=== PATIENT | female | born 1970 | race African-American/Black ===

== ENCOUNTER 2017-06-30 22:38 | Emergency (ER) | payer OTHER ==
[~2017-06-30] VITALS: Ht 160 cm; Wt 83.9 kg
[2017-06-30] MEDS ORDERED: Morphine Sulfate 4mg/ml Inj IVP ONE (23:15)
[2017-06-30] MEDS ORDERED: Morphine Sulfate 4mg/ml Inj IM ONE (23:45)
[2017-07-01] LABS: BASOPHILS % (AUTO) 1.2 % (0.0-2.0); EOSINOPHILS % (AUTO) 1.5 % (0.0-3.0); MEAN CORPUSCULAR HEMOGLOBIN 32.8 PG (27.0-31.0); MEAN CORPUSCULAR HGB CONC 34.4 G/DL (32.0-36.0); MEAN CORPUSCULAR VOLUME 95 FL (80-99); MEAN PLATELET VOLUME 7.1 FL (6.5-10.1); MONOCYTES % (AUTO) 4.6 % (1.0-10.0); NEUTROPHILS % (AUTO) 52.7 % (45.0-75.0); PLATELET COUNT 237 K/UL (150-450); RED BLOOD COUNT 3.83 M/UL (4.20-5.40); RED CELL DISTRIBUTION WIDTH 11.8 % (11.6-14.8); WHITE BLOOD COUNT 7.9 K/UL (4.8-10.8)
[2017-07-01 00:06] LABS: APPEARANCE,URINE CLEAR; KETONES,URINE NEGATIVE (NEGATIVE); LEUKOCYTE ESTERASE ,URINE NEGATIVE (NEGATIVE); NITRITE,URINE NEGATIVE (NEGATIVE); PH,URINE 6.5 (4.5-8.0); PROTEIN,URINE NEGATIVE (NEGATIVE); UROBILINOGEN,URINE NORMAL MG/DL (0.0-1.0)
[2017-07-01 00:14] LABS: ALANINE AMINOTRANSFERASE 30 U/L (12-78); ANION GAP 10 mmol/L (5-15); ASPARTATE AMINO TRANSFERASE 26 U/L (15-37); CALCIUM 9.1 MG/DL (8.5-10.1); CARBON DIOXIDE 25 MMOL/L (21-32); CHLORIDE 105 MMOL/L (98-107); CREATININE 0.9 MG/DL (0.55-1.30); GLOMERULAR FILTRATION RATE > 60 mL/min (>60); LIPASE 126 U/L (73-393); POTASSIUM 3.8 MMOL/L (3.5-5.1); SODIUM 140 MMOL/L (136-145); TOTAL PROTEIN 7.3 G/DL (6.4-8.2)
[2017-07-01 01:13] VITALS: BP 132/73
--- NOTE | 2017-07-01 01:22 | Emergency Room Report ---
History of Present Illness General Chief Complaint: Abdominal Pain Source: Patient Present Illness HPI Is a 39-year-old female who said that she has Crohn disease. She's taking Asacol and prednisone. She presents with chief complaint of Crohn's exacerbation. Onset for last 2 days. Claimed that she has nausea vomiting and diarrhea. Diarrhea is bloody also. Also has pain of 10 out of 10. Similar symptoms in the past. She normally go to [facility]. She said that she is out of her pain medication for last 2 days. Denies any other complaint. Also said that she has been to the hospital/ER for 2 months. Allergies: Coded Allergies: KETOROLAC (Verified Allergy, Unknown, 06/30/17) Patient History Past Medical History: see triage record, old chart reviewed Pertinent Family History: none Social History: Denies: smoking Last Menstrual Period: None Now: No Immunizations: other Reviewed Nursing Documentation: PMH: Agreed, PSxH: Agreed Review of Systems Eye: Denies: eye pain, blurred vision ENT: Denies: ear pain, nose congestion, throat swelling Respiratory: Denies: cough, shortness of breath Cardiovascular: Denies: chest pain, palpitations Gastrointestinal: Reports: abdominal pain, diarrhea, nausea, vomiting Musculoskeletal: Denies: back pain, joint pain Skin: Denies: rash Neurological: Denies: headache, numbness Endocrine: Denies: increased thirst, increased urine Hematologic/Lymphatic: Denies: easy bruising All Other Systems: negative except mentioned in HPI Physical Exam Vital Signs Date Time Temp Pulse Resp B/P (MAP) Pulse Ox O2 Delivery O2 Flow Rate FiO2 06/30/17 22:53 98.1 99 18 144/90 98 Room Air vitals normal Sp02 EP Interpretation: reviewed, normal General Appearance: well appearing, no apparent distress, alert Head: normocephalic, atraumatic Eyes: bilateral eye PERRL, bilateral eye EOMI ENT: hearing grossly normal, normal pharynx Neck: full range of motion, supple, no meningismus Respiratory: chest non-tender, lungs clear, normal breath sounds Cardiovascular #1: regular rate, rhythm, no murmur Gastrointestinal: normal bowel sounds, no mass, no organomegaly, no bruit, non- distended, tenderness - diffuse Musculoskeletal: back normal, gait/station normal, normal range of motion Psychiatric: mood/affect normal Skin: warm/dry Medical Decision Making Diagnostic Impression: Primary Impression: Abdominal pain Qualified Codes: R10.84 - Generalized abdominal pain Additional Impression: Opiate dependence, continuous ER Course She complaining of Crohn's exacerbation abdominal pain. She says she's been to [facility] multiple times in the past. She said that she is out of her pain medication. Also said that she normally get her refill on the . When I point out that on the [facility] system she gets 120 tablets of [place] every month. She just had them filled on June 23. After this, she can get him. Said that she thought it was talking about her Crohn's medication. I was very clear about her [place] and pain medication. I suspect her high drug-seeking behavior on this patient. No evidence of acute abdomen. No evidence of obstruction. She looks very comfortable. No vomiting or diarrhea. Is unremarkable. We'll discharge home. Lab Results Impression labs normal CT/MRI/US Diagnostic Results CT/MRI/US Diagnostic Results : Imaging Test Ordered: CT abdomen and pelvis Impression Read by radiologist. Negative. Last Vital Signs Date Time Temp Pulse Resp B/P (MAP) Pulse Ox O2 Delivery O2 Flow Rate FiO2 07/01/17 00:15 98.0 06/30/17 22:53 99 18 144/90 98 Room Air Status: improved Disposition: HOME, SELF-CARE Condition: Stable Referrals: NON PHYSICIAN (PCP) Patient Instructions: Abdominal Pain, Adult Additional Instructions: Followup with your DrKathe in 2-3 days. Return if symptom worsen. JESSIKA CANO M.D. Jul 01, 2017 01:22
[2017-07-01 01:25] VITALS: BP 132/73
--- NOTE | 2017-07-01 15:08 | Diagnostic Imaging Report ---
Indication: Abdominal pain Technique: Spiral acquisitions obtained through the abdomen and pelvis. No oral contrast utilized, per emergency room physician request No IV contrast utilized, per referring physician request.. Multiplanar reconstructions were generated. Total dose length product 849 mGycm. CTDIvol(s) 17 mGy. Dose reduction achieved using automated exposure control Comparison: None Findings: . Questionable small area of slightly increased attenuation of the pelvic fat could represent mild epiploic appendicitis. There is diastasis of the rectus abdominis tendon and a small containing broad-based umbilical hernia. The appendix is not definitely demonstrated, but no findings to suggest acute appendicitis are evident. No evidence of diverticulosis or diverticulitis. There is equivocal mild diffuse distal colon wall thickening, although this is more likely artifact of distention. Proximal to mid small bowel loops are prominent, fluid-filled, but not frankly dilated. No free or loculated intraperitoneal air or fluid is demonstrated. Lack of IV contrast limits assessment of solid organs. Liver, gallbladder, bile ducts, pancreas, spleen, adrenals, kidneys are unremarkable. No mesenteric or retroperitoneal mass or adenopathy. No pelvic mass or adenopathy. The included lung bases are clear except for some medial right middle lobe atelectasis or scarring. The bones are unremarkable. Impression: Request old small area of increased attenuation of the pericolonic fat adjacent to the proximal sigmoid colon, could represent a small area of epiploic appendicitis. Correlate with clinical findings No acute process otherwise This agrees with the preliminary interpretation provided overnight by [facility] teleradiology service. The CT scanner at [facility] is accredited by the [employer] and the scans are performed using protocols designed to limit radiation exposure to as low as reasonably achievable to attain images of sufficient resolution adequate for diagnostic evaluation.
== END 2017-07-01 01:25 | disposition home or self-care (01) ==
LOC: EMR 23:08
DX: R10.84 Generalized abdominal pain (principal); K50.90 Crohn's disease, unspecified, without complications; R11.2 Nausea with vomiting, unspecified; R19.7 Diarrhea, unspecified; Z88.8 Allergy status to other drugs, medicaments and biological substances; F11.20 Opioid dependence, uncomplicated
CPT/HCPCS: 36415; 74176; 80053; 80306; 81003; 83690; 85025; 96361; 96372; 96374; 96375; 99284; J2270; J2405

== ENCOUNTER 2017-12-24 12:31 | Inpatient (IN) | payer OTHER ==
[~2017-12-24] VITALS: Ht 165.1 cm; Wt 83.9 kg
[2017-12-24 12:19] VITALS: BP 120/77
[2017-12-24] MEDS ORDERED: Nitroglycerin 2% oint pkt TOPIC ONE (12:45)
[2017-12-24 13:24] LABS: BASOPHILS % (AUTO) 0.7 % (0.0-2.0); EOSINOPHILS % (AUTO) 1.2 % (0.0-3.0); HEMOGLOBIN 12.9 G/DL (12.0-16.0); LYMPHOCYTES % (AUTO) 32.2 % (20.0-45.0); MEAN CORPUSCULAR VOLUME 96 FL (80-99); MONOCYTES % (AUTO) 6.3 % (1.0-10.0); NEUTROPHILS % (AUTO) 59.7 % (45.0-75.0); PLATELET COUNT 215 K/UL (150-450); RED BLOOD COUNT 3.96 M/UL (4.20-5.40); RED CELL DISTRIBUTION WIDTH 11.5 % (11.6-14.8); WHITE BLOOD COUNT 4.1 K/UL (4.8-10.8)
[2017-12-24 13:28] LABS: ANION GAP 12 mmol/L (5-15); BLOOD UREA NITROGEN 10 mg/dL (7-18); CALCIUM 8.8 MG/DL (8.5-10.1); CARBON DIOXIDE 26 MMOL/L (21-32); CHLORIDE 104 MMOL/L (98-107); CREATININE 0.8 MG/DL (0.55-1.30); POTASSIUM 3.4 MMOL/L (3.5-5.1); SODIUM 142 MMOL/L (136-145)
[2017-12-24 13:41] LABS: ALANINE AMINOTRANSFERASE 95 U/L (12-78); ALBUMIN 3.5 G/DL (3.4-5.0); ALKALINE PHOSPHATASE 93 U/L (46-116); ASPARTATE AMINO TRANSFERASE 53 U/L (15-37); BILIRUBIN,TOTAL 0.6 MG/DL (0.2-1.0); CKMB 0.9 NG/ML (0.0-3.6); CREATINE KINASE 154 U/L (26-308)
--- NOTE | 2017-12-24 14:09 | Diagnostic Imaging Report ---
Indication: Chest pain Technique: XRAY Chest 1v Comparison: None Findings: Heart size and mediastinal contours are within normal limits given technique. There is no focal consolidation, pneumothorax or pleural effusion. Osseous structures demonstrate no acute abnormality. Impression: No radiographic evidence of acute cardiopulmonary disease.
[2017-12-24 14:24] LABS: APPEARANCE,URINE CLEAR; BILIRUBIN, URINE NEGATIVE (NEGATIVE); COLOR,URINE PALE YELLOW; GLUCOSE, URINE (UA) NEGATIVE (NEGATIVE); KETONES,URINE NEGATIVE (NEGATIVE); LEUKOCYTE ESTERASE ,URINE NEGATIVE (NEGATIVE); NITRITE,URINE NEGATIVE (NEGATIVE); PH,URINE 6.5 (4.5-8.0); PROTEIN,URINE NEGATIVE (NEGATIVE); UROBILINOGEN,URINE NORMAL MG/DL (0.0-1.0)
--- NOTE | 2017-12-24 14:39 | Emergency Room Report ---
History of Present Illness General Chief Complaint: Chest Pain Source: Patient, EMS Present Illness HPI This patient states that she developed chest pain while she was taking a bath today. She states the pain is on her left chest and radiates to her shoulders. She states she also has been having abdominal pain. She states she is on prednisone chronically for Crohn's disease. She denies diarrhea. She denies cough or congestion. She denies fever or chills. She denies nausea or vomiting. She has no other complaints. Allergies: Coded Allergies: KETOROLAC (Verified Allergy, Unknown, 06/30/17) Patient History Past Medical History: see triage record, other - Chron[facility] D[facility] Social History: Denies: smoking, alcohol use, drug use Last Menstrual Period: NA Reviewed Nursing Documentation: PMH: Agreed; PSxH: Agreed Nursing Documentation-PMH Past Medical History: No History, Except For Hx Gastrointestinal Problems: Yes - Crohn's disease Review of Systems All Other Systems: negative except mentioned in HPI Physical Exam Vital Signs Date Time Temp Pulse Resp B/P (MAP) Pulse Ox O2 Delivery O2 Flow Rate FiO2 12/24/17 12:09 98.3 82 15 120/77 96 Room Air 98.2 Sp02 EP Interpretation: reviewed, normal General Appearance: no apparent distress, alert, GCS 15, non-toxic Head: normocephalic, atraumatic Eyes: bilateral eye normal inspection, bilateral eye PERRL ENT: hearing grossly normal, normal pharynx, no angioedema, normal voice Neck: full range of motion, supple/symm/no masses Respiratory: chest non-tender, lungs clear, normal breath sounds, speaking full sentences Cardiovascular #1: regular rate, rhythm, no edema Gastrointestinal: normal bowel sounds, soft, non-distended, no guarding, no rebound, tenderness - epigastrium and RUQ pain Rectal: deferred Musculoskeletal: back normal, gait/station normal, normal range of motion, non- tender Neurologic: alert, oriented x3, responsive, motor strength/tone normal, sensory intact, speech normal Psychiatric: judgement/insight normal, memory normal, mood/affect normal, no suicidal/homicidal ideation Skin: normal color, no rash, warm/dry, well hydrated Medical Decision Making Diagnostic Impression: Primary Impression: Chest pain ER Course Patient presents with chest pain. She presents very early in onset of her pain. Initial workup to include troponin is negative. However, this patient is high risk with a history of Crohn's disease and is chronically on prednisone. Also, the patient has abdominal pain and she is pending CT abdomen and pelvis at the time of this dictation. If there is any abnormality found on CT, an addendum will be added by Dr. Santiago. This patient is admitted for further evaluation and treatment. Laboratory Tests Test 12/24/17 12:37 12/24/17 14:08 White Blood Count 4.1 K/UL (4.8-10.8) L Red Blood Count 3.96 M/UL (4.20-5.40) L Hemoglobin 12.9 G/DL (12.0-16.0) Hematocrit 38.0 % (37.0-47.0) Mean Corpuscular Volume 96 FL (80-99) Mean Corpuscular Hemoglobin 32.7 PG (27.0-31.0) H Mean Corpuscular Hemoglobin Concent 34.0 G/DL (32.0-36.0) Red Cell Distribution Width 11.5 % (11.6-14.8) L Platelet Count 215 K/UL (150-450) Mean Platelet Volume 7.6 FL (6.5-10.1) Neutrophils (%) (Auto) 59.7 % (45.0-75.0) Lymphocytes (%) (Auto) 32.2 % (20.0-45.0) Monocytes (%) (Auto) 6.3 % (1.0-10.0) Eosinophils (%) (Auto) 1.2 % (0.0-3.0) Basophils (%) (Auto) 0.7 % (0.0-2.0) Prothrombin Time 10.0 SEC (9.30-11.50) Prothrombin Time INR 1.0 (0.9-1.1) PTT 26 SEC (23-33) Sodium Level 142 MMOL/L (136-145) Potassium Level 3.4 MMOL/L (3.5-5.1) L Chloride Level 104 MMOL/L (98-107) Carbon Dioxide Level 26 MMOL/L (21-32) Anion Gap 12 mmol/L (5-15) Blood Urea Nitrogen 10 mg/dL (7-18) Creatinine 0.8 MG/DL (0.55-1.30) Estimate Glomerular Filtration Rate > 60 mL/min (>60) Glucose Level 133 MG/DL (74-106) H Calcium Level 8.8 MG/DL (8.5-10.1) Total Bilirubin 0.6 MG/DL (0.2-1.0) Aspartate Amino Transferase (AST) 53 U/L (15-37) H Alanine Aminotransferase (ALT) 95 U/L (12-78) H Alkaline Phosphatase 93 U/L (46-116) Total Creatine Kinase 154 U/L (26-308) Creatine Kinase MB 0.9 NG/ML (0.0-3.6) Creatine Kinase MB Relative Index 0.5 Troponin I 0.000 ng/mL (0.000-0.056) Total Protein 7.1 G/DL (6.4-8.2) Albumin 3.5 G/DL (3.4-5.0) Globulin 3.6 g/dL Albumin/Globulin Ratio 1.0 (1.0-2.7) Urine Color Pale yellow Urine Appearance Clear Urine pH 6.5 (4.5-8.0) Urine Specific [place] 1.015 (1.005-1.035) Urine Protein Negative (NEGATIVE) Urine Glucose (UA) Negative (NEGATIVE) Urine Ketones Negative (NEGATIVE) Urine Occult Blood Negative (NEGATIVE) Urine Nitrite Negative (NEGATIVE) Urine Bilirubin Negative (NEGATIVE) Urine Urobilinogen Normal MG/DL (0.0-1.0) Urine Leukocyte Esterase Negative (NEGATIVE) Urine HCG, Qualitative Negative (NEGATIVE) Urine Opiates Screen Pending Urine Barbiturates Screen Pending Phencyclidine (PCP) Screen Pending Urine Amphetamines Screen Pending Urine Benzodiazepines Screen Pending Urine Cocaine Screen Pending Urine Marijuana (THC) Screen Pending EKG Diagnostic Results Rate: normal Rhythm: NSR ST Segments: no acute changes Rhythm Strip Diag. Results EP Interpretation: yes Rate: 90's Rhythm: NSR, no PVC's, no ectopy Chest X-Ray Diagnostic Results Chest X-Ray Diagnostic Results : Chest X-Ray Ordered: Yes # of Views/Limited/Complete: 1 View Indication: Chest Pain EP Interpretation: No Interpretation: no consolidation, no effusion, no pneumothorax, no acute cardiopulmonary disease Impression: No acute disease Electronically Signed by: Alberto CT/MRI/US Diagnostic Results CT/MRI/US Diagnostic Results : Imaging Test Ordered: CT abd/pelvis Impression Pending at the time of this dictation. See official report. Last Vital Signs Date Time Temp Pulse Resp B/P (MAP) Pulse Ox O2 Delivery O2 Flow Rate FiO2 12/24/17 12:52 105/74 12/24/17 12:21 82 15 Room Air 12/24/17 12:19 98.2 96 98.2 Disposition: ADMITTED INPATIENT Condition: Stable [facility] NAVNEET BAUER D.O. Dec 24, 2017 14:39
[2017-12-24] MEDS ORDERED: HYDROcodone/Acetamin 10/325 tab ORAL ONE (16:30)
[2017-12-24 16:52] VITALS: BP 123/86
[2017-12-24] MEDS ORDERED: PREDNISONE20 MG ORAL (17:37)
[2017-12-24] MEDS ORDERED: CYCLOBENZAPRINE10 MG ORAL (17:37)
[2017-12-24] MEDS ORDERED: NORCO 10-325 T1 EACH ORAL (17:37)
[2017-12-24] MEDS ORDERED: ASACOL HD800 MG ORAL (17:37)
--- NOTE | 2017-12-24 18:23 | Consultation ---
History of Present Illness General Date patient seen: Dec 24, 2017 Chief Complaint: Chest Pain Reason for Consultation: abdominal pain Present Illness HPI 47 year old female with history of Crohn's disease on prednisone presented to ED with complaints of abdominal pain/chest pain, nausea, and emesis beginning this afternoon. States that she was doing well until she took a bath a few hours ago when she noted some generalized abdominal cramping which was 7/10 in severity. no radiation. +n/v. came to ED for evaluation. since generalized pain has somewhat improved and chest pain has resolved. states that she only has epigastric and RUQ discomfort now. because of her Crohn's she has chronic history of intermittent abdominal pain and takes norco 10mg occasionally. no NSAID use. has had similar episodes prior. was at [facility] 2 months ago where she was found to have an infection and was on IV Abx for some time. cannot recall details. 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 prior surgical history includes open appendectomy in and 4 prior c-sections. chronic constipation. Allergies: Coded Allergies: KETOROLAC (Verified Allergy, Unknown, 06/30/17) Medication History Scheduled Cyclobenzaprine Hcl* (Flexeril*), 40 MG ORAL TWICE A DAY, (Reported) Mesalamine (Asacol Hd), 800 MG ORAL TWICE A DAY, (Reported) Prednisone* (Prednisone*), 40 MG ORAL TWICE A DAY, (Reported) Scheduled PRN Hydrocodone Bit/Acetaminophen 10-325* ([place] 10-325*), 1 TAB ORAL Q6H PRN for For Pain, (Reported) Patient History History Provided By: Patient, Medical Record, PMD Healthcare decision maker Resuscitation status Advanced Directive on File Past Medical/Surgical History Past Medical/Surgical History: (1) Abdominal pain (2) Crohn disease (3) History of appendectomy (4) History of (5) Pneumoperitoneum of unknown etiology Review of Systems All Other Systems: negative except mentioned in HPI Physical Exam General Appearance: no apparent distress Lines, tubes and drains: peripheral HEENT: normocephalic, mucous membranes moist, PERRL Neck: normal alignment, supple, normal inspection Respiratory/Chest: chest wall non-tender, lungs clear, normal breath sounds, no respiratory distress, no accessory muscle use Cardiovascular/Chest: normal peripheral pulses, normal rate, regular rhythm Abdomen: soft, no organomegaly, no mass, tender, other - soft, no rebound, no guarding, tender in RUQ and epigastric region. no acute abdomen, no periotnitis Extremities: normal range of motion, non-tender Skin Exam: normal pigmentation Neurologic: alert, oriented x 3 Last 24 Hour Vital Signs Date Time Temp Pulse Resp B/P (MAP) Pulse Ox O2 Delivery O2 Flow Rate FiO2 12/24/17 17:37 98.2 12/24/17 16:52 82 14 123/86 99 Room Air 12/24/17 16:27 98.2 12/24/17 12:52 105/74 12/24/17 12:21 82 15 Room Air 12/24/17 12:19 98.2 82 15 120/77 96 Room Air 98.2 12/24/17 12:09 98.3 82 15 120/77 96 Room Air 98.2 Laboratory Tests Test 12/24/17 12:37 12/24/17 14:08 White Blood Count 4.1 K/UL (4.8-10.8) L Red Blood Count 3.96 M/UL (4.20-5.40) L Hemoglobin 12.9 G/DL (12.0-16.0) Hematocrit 38.0 % (37.0-47.0) Mean Corpuscular Volume 96 FL (80-99) Mean Corpuscular Hemoglobin 32.7 PG (27.0-31.0) H Mean Corpuscular Hemoglobin Concent 34.0 G/DL (32.0-36.0) Red Cell Distribution Width 11.5 % (11.6-14.8) L Platelet Count 215 K/UL (150-450) Mean Platelet Volume 7.6 FL (6.5-10.1) Neutrophils (%) (Auto) 59.7 % (45.0-75.0) Lymphocytes (%) (Auto) 32.2 % (20.0-45.0) Monocytes (%) (Auto) 6.3 % (1.0-10.0) Eosinophils (%) (Auto) 1.2 % (0.0-3.0) Basophils (%) (Auto) 0.7 % (0.0-2.0) Prothrombin Time 10.0 SEC (9.30-11.50) Prothromb Time International Ratio 1.0 (0.9-1.1) Activated Partial Thromboplast Time 26 SEC (23-33) Sodium Level 142 MMOL/L (136-145) Potassium Level 3.4 MMOL/L (3.5-5.1) L Chloride Level 104 MMOL/L (98-107) Carbon Dioxide Level 26 MMOL/L (21-32) Anion Gap 12 mmol/L (5-15) Blood Urea Nitrogen 10 mg/dL (7-18) Creatinine 0.8 MG/DL (0.55-1.30) Estimat Glomerular Filtration Rate > 60 mL/min (>60) Glucose Level 133 MG/DL (74-106) H Calcium Level 8.8 MG/DL (8.5-10.1) Total Bilirubin 0.6 MG/DL (0.2-1.0) Aspartate Amino Transf (AST/SGOT) 53 U/L (15-37) H Alanine Aminotransferase (ALT/SGPT) 95 U/L (12-78) H Alkaline Phosphatase 93 U/L (46-116) Total Creatine Kinase 154 U/L (26-308) Creatine Kinase MB 0.9 NG/ML (0.0-3.6) Creatine Kinase MB Relative Index 0.5 Troponin I 0.000 ng/mL (0.000-0.056) Total Protein 7.1 G/DL (6.4-8.2) Albumin 3.5 G/DL (3.4-5.0) Globulin 3.6 g/dL Albumin/Globulin Ratio 1.0 (1.0-2.7) Lipase 142 U/L (73-393) Urine Color Pale yellow Urine Appearance Clear Urine pH 6.5 (4.5-8.0) Urine Specific [place] 1.015 (1.005-1.035) Urine Protein Negative (NEGATIVE) Urine Glucose (UA) Negative (NEGATIVE) Urine Ketones Negative (NEGATIVE) Urine Occult Blood Negative (NEGATIVE) Urine Nitrite Negative (NEGATIVE) Urine Bilirubin Negative (NEGATIVE) Urine Urobilinogen Normal MG/DL (0.0-1.0) Urine Leukocyte Esterase Negative (NEGATIVE) Urine HCG, Qualitative Negative (NEGATIVE) Urine Opiates Screen Negative (NEGATIVE) Urine Barbiturates Screen Negative (NEGATIVE) Phencyclidine (PCP) Screen Negative (NEGATIVE) Urine Amphetamines Screen Negative (NEGATIVE) Urine Benzodiazepines Screen Negative (NEGATIVE) Urine Cocaine Screen Negative (NEGATIVE) Urine Marijuana (THC) Screen Negative (NEGATIVE) Height (Feet): 5 Height (Inches): 5.00 Weight (Pounds): 180 Assessment/Plan Status: stable Assessment/Plan 47F hx Crohn's on chronic steroids presented with acute abdominal and chest pain since earlier today. Afebrile, HD stable, labs okay CT scan with scattered small pockets of pneumoperitoneum of unknown etiology, endometrial air, no free fluid, no inflammatory process, no identifiable source. exam with epigastric/ruq tenderness but no rebound/guarding/peritonitis. complicated case given history. steroids complicate exam, labs and vitals as she may not mount of fever, white count, or significant inflammatory process. recent admission to outside facility with Abx course for unknown infection. given above I discussed case and care with patient. pneumoperitoneum and pain are very concerning. lack of identifiable etiology makes diagnosis complex. history of active chronic crohn's makes her high risk for surgical complications. I offered her both surgical options and alternatives. after we discussed surgery and alternatives, we came to conclusion to treat conservatively and continue with work up given she is stable. I need to obtain records from outside facility admission to determine what infection she had, what procedures she had done, and what imaging is available for comparison. would also prefer to get CT scan or upper GI with contrast to see if perforation and where. 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 possible perforated gastric or duodenal ulcer as well? also has history of chronic constipation so could be perforated tic as well that does not have significant inflammation given steroid use. will monitor clinically for now. patient aware that if exam, condition/vitals/ labs worsen may need to proceed to surgery urgently and condition may deteriorate if we wait. patient expressed understanding and preference to monitor for now and if worsens then consider surgery. NPO IV fluids IV Abx serial exams obtain prior records Mathew Perez Dec 24, 2017 18:23
[2017-12-24] MEDS ORDERED: Ketorolac 30mg Inj IV PRN (18:30)
[2017-12-24] MEDS ORDERED: Hydromorphone 0.5mg/0.5ml inj IVP PRN ×2 (18:30)
[2017-12-24] MEDS ORDERED: D5 1/2NS w/KCl 20mEq 1,000 ML IV SCH (19:00)
[2017-12-24] MEDS: Pantoprazole Inj IVP SCH (20:51)
[2017-12-24] MEDS: Piperacillin/Tazobactam 3.375 GM in NS 110 ML IVPB SCH (20:51)
[2017-12-24] MEDS: Heparin 5000 units/ml inj SUBQ SCH (20:53)
[2017-12-24] MEDS ORDERED: Morphine Sulfate 2mg/ml Inj IVP PRN (21:00)
[2017-12-24] MEDS ORDERED: Pantoprazole Inj IV SCH (21:30)
[2017-12-24] MEDS: D5 1/2NS 1,000 ML IV SCH (21:39)
[2017-12-24] MEDS: Cyclobenzaprine 10mg Tab ORAL SCH (21:40)
[2017-12-24] MEDS: Morphine Sulfate 4mg/ml Inj IVP PRN (22:39)
[2017-12-25] VITALS: BP 125/82
[2017-12-25] MEDS: Morphine Sulfate 4mg/ml Inj IVP PRN ×5 (01:49→19:34)
[2017-12-25 04:00] VITALS: BP 110/78
[2017-12-25] MEDS: D5 1/2NS 1,000 ML IV SCH ×3 (04:10→18:27)
[2017-12-25] MEDS: Piperacillin/Tazobactam 3.375 GM in NS 110 ML IVPB SCH ×3 (04:10→20:07)
[2017-12-25] MEDS: DiphenhydrAMINE 50mg/ml Inj IVP PRN ×2 (04:26→11:24)
[2017-12-25 04:43] LABS: BASOPHILS % (AUTO) 1.3 % (0.0-2.0); EOSINOPHILS % (AUTO) 2.4 % (0.0-3.0); HEMOGLOBIN 12.7 G/DL (12.0-16.0); MEAN CORPUSCULAR VOLUME 95 FL (80-99); MONOCYTES % (AUTO) 4.7 % (1.0-10.0); NEUTROPHILS % (AUTO) 49.6 % (45.0-75.0); PLATELET COUNT 218 K/UL (150-450); RED BLOOD COUNT 3.98 M/UL (4.20-5.40); RED CELL DISTRIBUTION WIDTH 11.6 % (11.6-14.8); WHITE BLOOD COUNT 4.3 K/UL (4.8-10.8)
[2017-12-25 05:23] LABS: ALANINE AMINOTRANSFERASE 80 U/L (12-78); ALBUMIN 3.3 G/DL (3.4-5.0); ALBUMIN/GLOBULIN RATIO 0.9 (1.0-2.7); ALKALINE PHOSPHATASE 86 U/L (46-116); ANION GAP 9 mmol/L (5-15); ASPARTATE AMINO TRANSFERASE 36 U/L (15-37); BLOOD UREA NITROGEN 8 mg/dL (7-18); CALCIUM 8.6 MG/DL (8.5-10.1); CARBON DIOXIDE 26 MMOL/L (21-32); CHLORIDE 106 MMOL/L (98-107); CHOLESTEROL 137 MG/DL (< 200); CREATININE 0.7 MG/DL (0.55-1.30); HDL CHOLESTEROL 71 MG/DL (40-60); POTASSIUM 3.6 MMOL/L (3.5-5.1); SODIUM 141 MMOL/L (136-145); TRIGLYCERIDES 100 MG/DL (30-150)
[2017-12-25 05:25] LABS: ANION GAP 11 mmol/L (5-15); BLOOD UREA NITROGEN 9 mg/dL (7-18); CALCIUM 8.6 MG/DL (8.5-10.1); CARBON DIOXIDE 25 MMOL/L (21-32); CHLORIDE 106 MMOL/L (98-107); CREATININE 0.7 MG/DL (0.55-1.30); POTASSIUM 3.9 MMOL/L (3.5-5.1); SODIUM 142 MMOL/L (136-145)
[2017-12-25 08:00] VITALS: BP 105/75
[2017-12-25] MEDS: Pantoprazole Inj IVP SCH ×2 (09:25→21:41)
[2017-12-25] MEDS: Cyclobenzaprine 10mg Tab ORAL SCH ×2 (09:25→17:34)
[2017-12-25] MEDS: Heparin 5000 units/ml inj SUBQ SCH ×2 (09:26→21:42)
--- NOTE | 2017-12-25 09:45 | Diagnostic Imaging Report ---
Clinical Indication: Abdominal pain Technique: No oral contrast utilized, per emergency room physician request IV administration nonionic contrast. Venous phase spiral acquisition obtained through the abdomen and pelvis. Multiplanar reconstructions were generated. Total dose length product 745.58 mGycm. CTDIvol(s) 14.56 mGy. Dose reduction achieved using automated exposure control Comparison: 06/30/2017 Findings: The appendix is not definitely visualized but no evidence of appendicitis. There are scattered colonic diverticula. No evidence of diverticulitis. Bubbles of extraluminal gas are seen in the anterior peritoneal space. Bubbles of gas are also seen over the dome of the liver, the dominant appendix, in Morison's pouch, and in the adarsh hepatis. No gastric wall thickening. No small bowel distention. The liver, gallbladder, bile ducts, pancreas, spleen, adrenals, kidneys are all unremarkable. No retroperitoneal or mesenteric mass or adenopathy. No pelvic mass or adenopathy. A few small gas bubbles are seen within the endometrial cavity. Endometrium is otherwise not thickened. No pelvic mass or adenopathy. The included lung bases demonstrate posterior dependent atelectatic changes. The included lung bases are clear. The bones demonstrate degenerative spondylosis changes. Impression: Free intraperitoneal air. This is suspicious for perforated hollow viscus however, no findings to suggest the etiology of this are demonstrated Gas bubbles in the endometrium. This raises concern for endometritis, although there is no endometrial thickening or fluid. It is also conceivable although unlikely that this could be the source of the pneumoperitoneum Degenerative spondylosis This agrees with the preliminary interpretation provided overnight by [facility]erad[facility] service. Findings also discussed by phone with Dr. Perez at the time of interpretation The CT scanner at [facility] is accredited by the [employer] and the scans are performed using protocols designed to limit radiation exposure to as low as reasonably achievable to attain images of sufficient resolution adequate for diagnostic evaluation.
--- NOTE | 2017-12-25 10:37 | History & Physical ---
History and Physical History & Physicial Hp dictated # [id number] DAVID IVEY Dec 25, 2017 10:37
--- NOTE | 2017-12-25 10:45 | Consultation ---
DATE OF CONSULTATION: 12/25/2017 GASTROENTEROLOGY CONSULTATION CONSULTING PHYSICIAN: Bhupendra Kerns M.D. CHIEF COMPLAINT: Crohn disease, perforated viscus. HISTORY OF PRESENT ILLNESS: This is a very pleasant 47-year-old female with past medical history of Crohn disease diagnosed about 5 years ago according to her, currently on prednisone taper to 20 mg a day and also Asacol. The patient is a patient of Dr. Fontaine in [facility]. She was admitted to the hospital complaining of right-sided upper quadrant abdominal pain. Imaging studies showed evidence of air in the abdomen, possible perforated viscus. The patient was admitted since then. PAST MEDICAL HISTORY: History of Crohn disease. ALLERGIES: To ketorolac. MEDICATIONS: Please see medication reconciliation list. SOCIAL HISTORY: The patient denies any recent tobacco, alcohol, or drug abuse. FAMILY HISTORY: Noncontributory. PAST SURGICAL HISTORY: 1. History of appendectomy. 2. . REVIEW OF SYSTEMS: A 10-point review of systems was performed and pertinent positives are in HPI. PHYSICAL EXAMINATION: VITAL SIGNS: Temperature 97.6, pulse 64, respirations 20, and blood pressure /78. HEENT: Normocephalic and atraumatic. Sclerae anicteric. NECK: Supple. No evidence of lymphadenopathy. CARDIOVASCULAR: Regular rhythm. Plus S1 and S2. No obvious murmur. LUNGS: Decreased breath sounds bilaterally based on the supine exam. ABDOMEN: Soft. Bowel sounds are hypoactive. There is tenderness to palpation in the right upper quadrant. No rebound. No guarding. No peritoneal sign. EXTREMITIES: No cyanosis. No clubbing. No edema. LABORATORY DATA: White count 4.3, hemoglobin 12, hematocrit 38, platelet of 218,000. ASSESSMENT: This is a 47-year-old female with history of Crohn disease, who presented to the hospital with possible perforated viscus. According to the patient, she had a BM today which was watery and nonbloody. PLAN: The patient has been already seen by the surgeon, Dr. Perez. The patient is n.p.o., on IV fluids. We will change the prednisone from p.o. to IV given the patient is planned to be n.p.o. except for medications. We will start the patient on Solu-Medrol 20 mg IV q.8 h. We will send the stool for C. difficile. Follow labs. Follow surgical recommendations. Bhupendra Kerns M.D. DR: Darrian JOB#: [id number] CC:
[2017-12-25 12:00] VITALS: BP 123/84
--- NOTE | 2017-12-25 12:50 | General Surgery Progress Note ---
General Surgery-Progress Note Subjective Symptoms: improved Additional Comments doing well. pain improved. no n/v/f/c. passing flatus. had 2x BM. states she feels better. Objective Last 24 Hour Vital Signs Date Time Temp Pulse Resp B/P (MAP) Pulse Ox O2 Delivery O2 Flow Rate FiO2 12/25/17 12:00 77 12/25/17 08:00 97.3 73 21 105/75 99 Room Air 97.3 73 12/25/17 08:00 68 12/25/17 04:00 97.6 64 20 110/78 100 Room Air 97.6 64 12/25/17 03:35 61 12/25/17 00:00 97.7 66 20 125/82 97 Room Air 97.7 66 12/25/17 00:00 97.7 66 20 125/82 97 Room Air 97.7 66 12/24/17 23:33 78 12/24/17 21:40 98.2 12/24/17 20:53 70 12/24/17 19:15 98.2 82 14 123/86 99 Room Air 208.8 12/24/17 19:00 98.2 12/24/17 17:37 98.2 12/24/17 16:52 82 14 123/86 99 Room Air 12/24/17 16:27 98.2 12/24/17 12:52 105/74 I&O Intake and Output 12/24/17 12/25/17 19:00 07:00 Intake Total 1000 ml 2107.5 ml Output Total 550 ml Balance 1000 ml 1557.5 ml Intake IV Total 1000 ml 1507.5 ml Other 600 ml Output Urine Total 550 ml # Voids 1 2 # Bowel Movements 2 Cardiovascular: RSR Respiratory: clear Abdomen: soft, flat, non-tender, present bowel sounds Extremities: no edema, no tenderness, no cyanosis Laboratory Tests Test 12/24/17 14:08 12/25/17 03:30 Urine Color Pale yellow Urine Appearance Clear Urine pH 6.5 (4.5-8.0) Urine Specific [place] 1.015 (1.005-1.035) Urine Protein Negative (NEGATIVE) Urine Glucose (UA) Negative (NEGATIVE) Urine Ketones Negative (NEGATIVE) Urine Occult Blood Negative (NEGATIVE) Urine Nitrite Negative (NEGATIVE) Urine Bilirubin Negative (NEGATIVE) Urine Urobilinogen Normal MG/DL (0.0-1.0) Urine Leukocyte Esterase Negative (NEGATIVE) Urine HCG, Qualitative Negative (NEGATIVE) Urine Opiates Screen Negative (NEGATIVE) Urine Barbiturates Screen Negative (NEGATIVE) Phencyclidine (PCP) Screen Negative (NEGATIVE) Urine Amphetamines Screen Negative (NEGATIVE) Urine Benzodiazepines Screen Negative (NEGATIVE) Urine Cocaine Screen Negative (NEGATIVE) Urine Marijuana (THC) Screen Negative (NEGATIVE) White Blood Count 4.3 K/UL (4.8-10.8) L Red Blood Count 3.98 M/UL (4.20-5.40) L Hemoglobin 12.7 G/DL (12.0-16.0) Hematocrit 38.0 % (37.0-47.0) Mean Corpuscular Volume 95 FL (80-99) Mean Corpuscular Hemoglobin 31.8 PG (27.0-31.0) H Mean Corpuscular Hemoglobin Concent 33.3 G/DL (32.0-36.0) Red Cell Distribution Width 11.6 % (11.6-14.8) Platelet Count 218 K/UL (150-450) Mean Platelet Volume 7.6 FL (6.5-10.1) Neutrophils (%) (Auto) 49.6 % (45.0-75.0) Lymphocytes (%) (Auto) 42.0 % (20.0-45.0) Monocytes (%) (Auto) 4.7 % (1.0-10.0) Eosinophils (%) (Auto) 2.4 % (0.0-3.0) Basophils (%) (Auto) 1.3 % (0.0-2.0) Erythrocyte Sedimentation Rate 4 MM/HR (0-20) Sodium Level 142 MMOL/L (136-145) Potassium Level 3.9 MMOL/L (3.5-5.1) Chloride Level 106 MMOL/L (98-107) Carbon Dioxide Level 25 MMOL/L (21-32) Anion Gap 11 mmol/L (5-15) Blood Urea Nitrogen 9 mg/dL (7-18) Creatinine 0.7 MG/DL (0.55-1.30) Estimat Glomerular Filtration Rate > 60 mL/min (>60) Glucose Level 129 MG/DL (74-106) H Lactic Acid Level 1.60 mmol/L (0.66-2.22) Calcium Level 8.6 MG/DL (8.5-10.1) Magnesium Level 2.2 MG/DL (1.8-2.4) Total Bilirubin 1.0 MG/DL (0.2-1.0) Aspartate Amino Transf (AST/SGOT) 36 U/L (15-37) Alanine Aminotransferase (ALT/SGPT) 80 U/L (12-78) H Alkaline Phosphatase 86 U/L (46-116) C-Reactive Protein, Quantitative 1.0 mg/dL (0.00-0.90) H Total Protein 6.8 G/DL (6.4-8.2) Albumin 3.3 G/DL (3.4-5.0) L Globulin 3.5 g/dL Albumin/Globulin Ratio 0.9 (1.0-2.7) L Triglycerides Level 100 MG/DL (30-150) Cholesterol Level 137 MG/DL (< 200) LDL Cholesterol 61 mg/dL (<100) HDL Cholesterol 71 MG/DL (40-60) H Cholesterol/HDL Ratio 1.9 (3.3-4.4) L Plan Problems: (1) Pneumoperitoneum of unknown etiology Assessment & Plan: 47F hx Crohn's on chronic steroids presented with acute abdominal and chest pain since earlier today. Afebrile, HD stable, labs okay CT scan with scattered small pockets of pneumoperitoneum of unknown etiology, endometrial air, no free fluid, no inflammatory process, no identifiable source. exam with epigastric/ruq tenderness but no rebound/guarding/peritonitis. complicated case given history. steroids complicate exam, labs and vitals as she may not mount of fever, white count, or significant inflammatory process. recent admission to outside facility with Abx course for unknown infection. given above I discussed case and care with patient. pneumoperitoneum and pain are very concerning. lack of identifiable etiology makes diagnosis complex. history of active chronic crohn's makes her high risk for surgical complications. I offered her both surgical options and alternatives. after we discussed surgery and alternatives, we came to conclusion to treat conservatively and continue with work up given she is stable. I need to obtain records from outside facility admission to determine what infection she had, what procedures she had done, and what imaging is available for comparison. would also prefer to get CT scan or upper GI with contrast to see if perforation and where. 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 possible perforated gastric or duodenal ulcer as well? also has history of chronic constipation so could be perforated tic as well that does not have significant inflammation given steroid use. will monitor clinically for now. patient aware that if exam, condition/vitals/ labs worsen may need to proceed to surgery urgently and condition may deteriorate if we wait. patient expressed understanding and preference to monitor for now and if worsens then consider surgery. Doing better today. pain improving. exam improved. labs okay. reviewed CT with radiologist. will continue with current care plan for now as she is improving. NPO IV fluids IV Abx serial exams obtain prior records Mathew Perez Dec 25, 2017 12:50
[2017-12-25] MEDS: Solu-MEDROL 40mg Inj IVP SCH ×2 (13:44→21:41)
[2017-12-25 16:00] VITALS: BP 112/65
--- NOTE | 2017-12-25 16:30 | History and Physical Report ---
DATE OF ADMISSION: 12/24/2017 CHIEF COMPLAINT: Abdominal pain. HISTORY OF PRESENT ILLNESS: The patient is a 47-year-old female with history of Crohn's disease, apparently this was diagnosed about 5 to 6 years ago. The patient comes in with severe upper abdominal pain which started yesterday, it was 10/10. Also she had some chest pain. She called paramedics, was brought into the hospital. In the emergency room, she had a CT scan of the abdomen which showed some pneumoperitoneum and there was a concern that the patient had bowel perforation so she was admitted to the [facility]. She states that she does not have chronic pains, the last time she had severe pain was in October. Also few months ago she was in the [facility] for Crohn's related symptoms and she was on antibiotics for infection. The patient has had also some diarrhea at that time and again at this time. She has not had any surgery related to Crohn's but she has had an appendectomy and four C-sections. ALLERGIES: Ketorolac causing swelling of her throat. MEDICATIONS: Reviewed in the EMR. SOCIAL HISTORY: No history of smoking or alcohol abuse. The patient lives at home. 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 She has applied for disability less than a year ago. No history of smoking or alcohol abuse. She lives alone. REVIEW OF SYSTEMS: CARDIOVASCULAR: No history of heart disease. She had chest pain just yesterday. PULMONARY: No complaints. GASTROINTESTINAL: As above. Note that the patient had also some stomach upset before. GENITOURINARY: No complaints. PHYSICAL EXAMINATION: GENERAL: The patient is a 47-year-old female, in no acute distress. VITAL SIGNS: Blood pressure 105/75, pulse 68, temperature 97.3, respiratory rate is 21. HEENT: [place] conjunctivae. Anicteric sclerae. NECK: Supple. LUNGS: Clear to auscultation. HEART: S1 and S2 without murmurs or rubs. ABDOMEN: The patient has some tenderness in epigastric area as well as right upper quadrant. slightly extended EXTREMITIES: Bilateral pedal edema. LABORATORY FINDINGS: CBC as of admission shows WBC of 4.1, hematocrit 38, hemoglobin 12.9, and platelets 215,000. The chemistry panel shows a serum sodium 141, potassium 3.6, chloride 106, CO2 29, BUN 8, creatinine 0.7, blood sugar is 132, calcium is 8.6. AST , ALT is 80. Albumin is 3.3. Lipase 142. UA is benign. The patient had a toxicology screen in the emergency room which was also negative and also negative for opiates. ASSESSMENT: This is a 47-year-old female who has Crohn's disease who presents now with severe abdominal pain. She has some diarrhea. Symptoms could be exacerbation of Crohn's disease. She did have a pneumoperitoneum so the possibility of small perforation exists. PLAN: The patient was seen by Dr. Perez in surgical consultation, needs opinion. There is no urgent need for surgery and the patient can be observed conservatively at this time. The patient was also seen by Dr. Kerns for GI. Plan is currently, the patient will be on IV fluids, NPO, IV antibiotics, pain medications. We will follow clinically and make further changes in the patient's regimen. Matthew Mas M.D. DR: Dusty JOB#: [id number] CC:
[2017-12-25 20:00] VITALS: BP 138/81
[2017-12-25] MEDS ORDERED: Tubing IV Secondary IV ONE (22:40)
[2017-12-25] MEDS ORDERED: D5 1/2NS 1000ml IV ONE (22:40)
[2017-12-25] MEDS ORDERED: Sterile Water Irrig 1000ml IRRIG ONE (22:40)
[2017-12-26] VITALS (13 sets, daily range): BP systolic 99–143; BP diastolic 48–97
[2017-12-26] MEDS: D5 1/2NS 1,000 ML IV SCH ×4 (01:17→20:18)
[2017-12-26] MEDS: Piperacillin/Tazobactam 3.375 GM in NS 110 ML IVPB SCH ×3 (04:04→20:18)
[2017-12-26] MEDS: Morphine Sulfate 4mg/ml Inj IVP PRN ×3 (04:12→13:42)
[2017-12-26 04:43] LABS: HEMATOCRIT 36.1 % (37.0-47.0); HEMOGLOBIN 12.6 G/DL (12.0-16.0); MEAN CORPUSCULAR VOLUME 96 FL (80-99); PLATELET COUNT 226 K/UL (150-450); RED BLOOD COUNT 3.78 M/UL (4.20-5.40); RED CELL DISTRIBUTION WIDTH 11.6 % (11.6-14.8); WHITE BLOOD COUNT 6.6 K/UL (4.8-10.8)
[2017-12-26 05:00] LABS: ALANINE AMINOTRANSFERASE 65 U/L (12-78); ALBUMIN 3.3 G/DL (3.4-5.0); ALBUMIN/GLOBULIN RATIO 0.8 (1.0-2.7); ALKALINE PHOSPHATASE 89 U/L (46-116); ANION GAP 9 mmol/L (5-15); ASPARTATE AMINO TRANSFERASE 23 U/L (15-37); BILIRUBIN,TOTAL 0.7 MG/DL (0.2-1.0); BLOOD UREA NITROGEN 6 mg/dL (7-18); CALCIUM 9.1 MG/DL (8.5-10.1); CARBON DIOXIDE 25 MMOL/L (21-32); CHLORIDE 103 MMOL/L (98-107); CREATININE 0.8 MG/DL (0.55-1.30); POTASSIUM 3.8 MMOL/L (3.5-5.1); SODIUM 137 MMOL/L (136-145)
[2017-12-26] MEDS: Solu-MEDROL 40mg Inj IVP SCH ×3 (06:04→21:42)
[2017-12-26] MEDS: DiphenhydrAMINE 50mg/ml Inj IVP PRN (07:11)
[2017-12-26] MEDS: Pantoprazole Inj IVP SCH ×2 (09:04→21:39)
[2017-12-26] MEDS: Cyclobenzaprine 10mg Tab ORAL SCH ×2 (09:06→18:00)
[2017-12-26] MEDS: Heparin 5000 units/ml inj SUBQ SCH ×2 (09:11→21:40)
--- NOTE | 2017-12-26 09:35 | General Progress Note ---
Assessment/Plan Problem List: (1) Pneumoperitoneum of unknown etiology ICD Codes: K66.8 - Other specified disorders of peritoneum SNOMED: 69733233 (2) Crohn disease ICD Codes: K50.90 - Crohn's disease, unspecified, without complications SNOMED: 23632145 (3) Abdominal pain ICD Codes: R10.9 - Unspecified abdominal pain SNOMED: 05645526 Assessment/Plan IVF Abxs NPO will discuss with GI and Surgery Subjective Allergies: Coded Allergies: KETOROLAC (Verified Allergy, Unknown, 06/30/17) Subjective pain is the same Objective Last 24 Hour Vital Signs Date Time Temp Pulse Resp B/P (MAP) Pulse Ox O2 Delivery O2 Flow Rate FiO2 12/26/17 04:00 86 12/26/17 04:00 97.9 75 20 136/75 98 Room Air 97.9 75 12/26/17 00:00 98.2 77 20 140/66 96 Room Air 98.2 77 12/26/17 00:00 88 12/25/17 20:00 87 12/25/17 20:00 98.2 83 20 138/81 96 Room Air 98.2 83 12/25/17 16:00 97.8 71 22 112/65 97 Room Air 97.8 71 12/25/17 16:00 71 12/25/17 12:00 97.9 83 21 123/84 98 Room Air 97.9 83 12/25/17 12:00 77 Intake and Output 12/25/17 12/26/17 19:00 07:00 Intake Total 1762.5 ml 1772.0 ml Output Total 450 ml Balance 1312.5 ml 1772.0 ml Intake IV Total 902.5 ml 1772.0 ml Other 860 ml Output Urine Total 450 ml # Voids 2 4 Laboratory Tests 12/26/17 03:55: White Blood Count 6.6#, Red Blood Count 3.78L, Hemoglobin 12.6, Hematocrit 36.1L , Mean Corpuscular Volume 96, Mean Corpuscular Hemoglobin 33.5H, Mean Corpuscular Hemoglobin Concent 35.0, Red Cell Distribution Width 11.6, Platelet Count 226, Mean Platelet Volume 7.6, Neutrophils (%) (Auto) , Lymphocytes (%) ( Auto) , Monocytes (%) (Auto) , Eosinophils (%) (Auto) , Basophils (%) (Auto) , Neutrophils % (Manual) [Pending], Lymphocytes % (Manual) [Pending], Platelet Estimate [Pending], Platelet Morphology [Pending], Sodium Level 137, Potassium Level 3.8, Chloride Level 103, Carbon Dioxide Level 25, Anion Gap 9, Blood Urea Nitrogen 6L, Creatinine 0.8, Estimat Glomerular Filtration Rate > 60, Glucose Level 160H, Calcium Level 9.1, Total Bilirubin 0.7, Aspartate Amino Transf (AST/ SGOT) 23, Alanine Aminotransferase (ALT/SGPT) 65, Alkaline Phosphatase 89, Total Protein 7.2, Albumin 3.3L, Globulin 3.9, Albumin/Globulin Ratio 0.8L Height (Feet): 5 Height (Inches): 5.00 Weight (Pounds): 191 Cardiovascular: normal rate Respiratory/Chest: lungs clear Abdomen: tender - epigastric Edema: 2+ Generalized DAVID IVEY Dec 26, 2017 09:35
--- NOTE | 2017-12-26 09:37 | Diagnostic Imaging Report ---
Indication: Abdominal pain Technique: Supine view of the abdomen Comparison: Distribution Supervisor image from abdomen/pelvis CT 12/24/2017 Findings: Bowel gas pattern is unremarkable. No unusual masses or calcifications Impression: No acute process
[2017-12-26] MEDS ORDERED: D5 1/2NS 1000ml IV ONE (10:39)
[2017-12-26] MEDS ORDERED: NS 275ml ONE (10:39)
--- NOTE | 2017-12-26 15:21 | Pre-Procedure Note/Attestation ---
Pre-Procedure Note/Attestation Complete Prior to Procedure Planned Procedure: not applicable Procedure Narrative: diagnostic laparoscopy, possible exploratory laparotomy, possible bowel resection, possible ostomy Indications for Procedure Pre-Operative Diagnosis: pneumoperitoneum Attestation I attest that I discussed the nature of the procedure; its benefits; risks and complications; and alternatives (and the risks and benefits of such alternatives ), prior to the procedure, with the patient (or the patient's legal veterans service representative). I attest that, if there was a reasonable possibility of needing a blood transfusion, the patient (or the patient's legal veterans service representative) was given the [facility] standardized written summary, pursuant to the [place] Blood Safety Act ([place] Health and Safety Code # 1645, as amended). I attest that I re-evaluated the patient just prior to the surgery and that there has been no change in the patient's H&P, except as documented below: Mathew Perez Dec 26, 2017 15:21
[2017-12-26] MEDS ORDERED: Morphine Sulfate 4mg/ml Inj IVP PRN (15:30)
--- NOTE | 2017-12-26 15:31 | General Surgery Progress Note ---
General Surgery-Progress Note Subjective Additional Comments still with pain. still uncomfortable. no n/v/f/c. labs reviewed and CBC with shift. Objective Last 24 Hour Vital Signs Date Time Temp Pulse Resp B/P (MAP) Pulse Ox O2 Delivery O2 Flow Rate FiO2 12/26/17 12:30 97.7 83 20 131/74 97 Room Air 97.7 12/26/17 12:00 79 12/26/17 08:30 97.2 77 20 133/84 100 Room Air 97.2 12/26/17 07:35 68 12/26/17 04:00 86 12/26/17 04:00 97.9 75 20 136/75 98 Room Air 97.9 75 12/26/17 00:00 98.2 77 20 140/66 96 Room Air 98.2 77 12/26/17 00:00 88 12/25/17 20:00 87 12/25/17 20:00 98.2 83 20 138/81 96 Room Air 98.2 83 12/25/17 16:00 97.8 71 22 112/65 97 Room Air 97.8 71 12/25/17 16:00 71 I&O Intake and Output 12/25/17 12/26/17 19:00 07:00 Intake Total 1762.5 ml 1772.0 ml Output Total 450 ml Balance 1312.5 ml 1772.0 ml IV Total 902.5 ml 1772.0 ml Other 860 ml Output Urine Total 450 ml # Voids 2 4 Cardiovascular: RSR Respiratory: clear Abdomen: soft, distended, tenderness Extremities: no edema, no tenderness, no cyanosis Laboratory Tests Test 12/26/17 03:55 White Blood Count 6.6 K/UL (4.8-10.8) # Red Blood Count 3.78 M/UL (4.20-5.40) L Hemoglobin 12.6 G/DL (12.0-16.0) Hematocrit 36.1 % (37.0-47.0) L Mean Corpuscular Volume 96 FL (80-99) Mean Corpuscular Hemoglobin 33.5 PG (27.0-31.0) H Mean Corpuscular Hemoglobin Concent 35.0 G/DL (32.0-36.0) Red Cell Distribution Width 11.6 % (11.6-14.8) Platelet Count 226 K/UL (150-450) Mean Platelet Volume 7.6 FL (6.5-10.1) Neutrophils (%) (Auto) % (45.0-75.0) Lymphocytes (%) (Auto) % (20.0-45.0) Monocytes (%) (Auto) % (1.0-10.0) Eosinophils (%) (Auto) % (0.0-3.0) Basophils (%) (Auto) % (0.0-2.0) Differential Total Cells Counted 100 Neutrophils % (Manual) 82 % (45-75) H Lymphocytes % (Manual) 17 % (20-45) L Monocytes % (Manual) 1 % (1-10) Eosinophils % (Manual) 0 % (0-3) Basophils % (Manual) 0 % (0-2) Band Neutrophils 0 % (0-8) Platelet Estimate Adequate Platelet Morphology Normal Red Blood Cell Morphology Normal Sodium Level 137 MMOL/L (136-145) Potassium Level 3.8 MMOL/L (3.5-5.1) Chloride Level 103 MMOL/L (98-107) Carbon Dioxide Level 25 MMOL/L (21-32) Anion Gap 9 mmol/L (5-15) Blood Urea Nitrogen 6 mg/dL (7-18) L Creatinine 0.8 MG/DL (0.55-1.30) Estimat Glomerular Filtration Rate > 60 mL/min (>60) Glucose Level 160 MG/DL (74-106) H Calcium Level 9.1 MG/DL (8.5-10.1) Total Bilirubin 0.7 MG/DL (0.2-1.0) Aspartate Amino Transf (AST/SGOT) 23 U/L (15-37) Alanine Aminotransferase (ALT/SGPT) 65 U/L (12-78) Alkaline Phosphatase 89 U/L (46-116) Total Protein 7.2 G/DL (6.4-8.2) Albumin 3.3 G/DL (3.4-5.0) L Globulin 3.9 g/dL Albumin/Globulin Ratio 0.8 (1.0-2.7) L Plan Problems: (1) Pneumoperitoneum of unknown etiology Assessment & Plan: 47F hx Crohn's on chronic steroids presented with acute abdominal and chest pain since earlier today. Afebrile, HD stable, labs okay CT scan with scattered small pockets of pneumoperitoneum of unknown etiology, endometrial air, no free fluid, no inflammatory process, no identifiable source. exam with epigastric/ruq tenderness but no rebound/guarding/peritonitis. complicated case given history. steroids complicate exam, labs and vitals as she may not mount of fever, white count, or significant inflammatory process. recent admission to outside facility with Abx course for unknown infection. given above I discussed case and care with patient. pneumoperitoneum and pain are very concerning. lack of identifiable etiology makes diagnosis complex. history of active chronic crohn's makes her high risk for surgical complications. I offered her both surgical options and alternatives. after we discussed surgery and alternatives, we came to conclusion to treat conservatively and continue with work up given she is stable. I need to obtain records from outside facility admission to determine what infection she had, what procedures she had done, and what imaging is available for comparison. would also prefer to get CT scan or upper GI with contrast to see if perforation and where. 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 possible perforated gastric or duodenal ulcer as well? also has history of chronic constipation so could be perforated tic as well that does not have significant inflammation given steroid use. will monitor clinically for now. patient aware that if exam, condition/vitals/ labs worsen may need to proceed to surgery urgently and condition may deteriorate if we wait. patient expressed understanding and preference to monitor for now and if worsens then consider surgery. Not significantly improved. still with tenderness. labs reviewed. repeat CT still with free air. discussed findings with patient, GI, primary. given above and no significant improvement will proceed to OR for diagnostic laparoscopy. I discussed high risk nature of procedure with patient given her history and steroid use. we discussed negative laparoscopy, negative laparotomy , bleeding, infection, injury to bowel, fistula formation, pain, bowel resection , ostomy, conversion to exploration. 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 if no acute process will abort procedure and manage medically Crohn's disease until ready for semi-elective surgery. patient expressed understanding and consented to surgery. NPO IV fluids IV Abx serial exams obtain prior records Mathew Perez Dec 26, 2017 15:31
[2017-12-26] MEDS ORDERED: Lidocaine 1% 10mg/ml/Epi 0.005mg/ml 30ml vial INJ ONE (15:44)
[2017-12-26] MEDS ORDERED: NeoSporin Gu Irrig 1ml Amp IRRIG ONE (15:44)
[2017-12-26] MEDS ORDERED: Bacitracin 50000 Units Vial ONE (15:44)
[2017-12-26] MEDS ORDERED: NS Irrig 1000ml IRRIG ONE (15:55)
[2017-12-26] MEDS ORDERED: Zemuron 50mg/5ml Inj IV ONE ×2 (16:13→16:20)
[2017-12-26] MEDS ORDERED: fentaNYL 100 mcg/2 mL IV ONE (16:20)
[2017-12-26] MEDS ORDERED: Neostigmine 1mg/ml 10ml Inj ONE (16:20)
[2017-12-26] MEDS ORDERED: Glycopyrrolate 0.2mg/ml 1ml Vial ONE (16:20)
[2017-12-26] MEDS ORDERED: Propofol 200mg/20ml IV ONE (16:20)
[2017-12-26] MEDS ORDERED: Hydromorphone 0.5mg/0.5ml inj ONE (16:20)
[2017-12-26] MEDS ORDERED: Esmolol 100mg/10ml Inj ONE (16:20)
[2017-12-26] MEDS ORDERED: Midazolam 2mg/2ml Inj ONE (16:20)
[2017-12-26] MEDS ORDERED: LR 1000ml ONE (16:20)
--- NOTE | 2017-12-26 16:21 | Diagnostic Imaging Report ---
Clinical Indication: Abdominal pain Technique: Patient ingested oral contrast. IV administration nonionic contrast. Venous phase spiral acquisition obtained through the abdomen and pelvis. Multiplanar reconstructions were generated. Total dose length product 856.67 mGycm. CTDIvol(s) 17.05 mGy. Dose reduction achieved using automated exposure control Comparison: 12/24/2017 Findings: Again demonstrated is a small amount of free intraperitoneal gas over the dome of the right hepatic lobe, anterior left hepatic lobe, within the adarsh hepatis posterior to the right hepatic lobe, adjacent to the spleen, adjacent to the caudate lobe of the liver and anterior to the pancreatic tail. Previously demonstrated gas bubbles deep to the umbilicus and in the more inferior anterior peritoneal space are no longer evident. Contrast is seen throughout the entirety of the small bowel and within the colon as far distally as the ascending colon. No extravasated contrast is demonstrated. No free peritoneal fluid collections. Previously demonstrated endometrial gas is no longer evident. A small amount of gas is seen within the cervical region. Uncertain as to whether some of this is within the endocervical canal or is all within the corners of the vagina. As previously, the appendix is not definitely demonstrated. No definite evidence of diverticulosis or diverticulitis. There is a small fat-containing umbilical hernia. The gallbladder contains a small amount of contrast, presumably excreted from the previous study, within the lumen. No gallstones are demonstrated. The liver, bile ducts, pancreas, spleen, adrenals, kidneys are all unremarkable. No retroperitoneal or mesenteric mass or adenopathy. No pelvic mass or adenopathy. The included lung bases are clear except for compressive atelectatic changes. The bones are unremarkable except for mild degenerative spondylosis changes. Impression: Small pneumoperitoneum again demonstrated. Although the gas appears somewhat more concentrated in the anterior upper abdominal peritoneal space, overall amount is similar to or perhaps slightly decreased from the previous study. While consistent with a perforated hollow viscus, the etiology is again not demonstrated. No contrast extravasation is evident, although the distal colon is not filled with contrast Seriously described gas within the endometrium is no longer evident. There may be a small amount of residual gas within the endocervical canal Other findings as noted, including compressive pulmonary atelectatic changes, degenerative spondylosis, small fat-containing umbilical hernia Findings previously discussed by phone with Dr. Perez The CT scanner at [facility] is accredited by the [employer] and the scans are performed using protocols designed to limit radiation exposure to as low as reasonably achievable to attain images of sufficient resolution adequate for diagnostic evaluation.
[2017-12-26] MEDS ORDERED: LORazepam Inj 2mg/ml 1ml IV PRN (17:30)
[2017-12-26] MEDS ORDERED: LR 1000ml 1,000 ML IVLG SCH (17:30)
[2017-12-26] MEDS ORDERED: DiphenhydrAMINE 50mg/ml Inj IVP PRN (17:30)
[2017-12-26] MEDS ORDERED: Meperidine 50mg/ml Inj(FOR RIGORS ONLY) IVP ONE (17:30)
[2017-12-26] MEDS ORDERED: Hydromorphone 0.5mg/0.5ml inj IVP PRN (17:30)
--- NOTE | 2017-12-26 17:35 | Anethesia Preoperative Eval ---
Anesthesia Pre-op PMH/ROS General Date of Evaluation: Dec 26, 2017 Time of Evaluation: 16:20 Anesthesiologist: Ophelia ASA Score: ASA 3 Mallampati Score Class I : Soft palate, uvula, fauces, pillars visible Class II: Soft palate, uvula, fauces visible Class III: Soft palate, base of uvula visible Class IV: Only hard plate visible Mallampati Classification: Class II Surgeon: Ana Diagnosis: Perforated bowel Surgical Procedure: Exploratory laparoscopy Family History: no anesthesia problems Allergies: Coded Allergies: KETOROLAC (Verified Allergy, Unknown, 06/30/17) Past Medical History Cardiovascular: Denies: HTN, CAD, [place], valve dz, arrhythmia, other Pulmonary: Denies: asthma, COPD, ASHA, other Gastrointestinal/Genitourinary: Reports: other - Crohn's ; Denies: GERD, CRI, ESRD Neurologic/Psychiatric: Denies: dementia, CVA, depression/anxiety, TIA, other Endocrine: Denies: DM, hypothyroidism, steroids, other HEENT: Denies: cataract (L), cataract (R), glaucoma, [place] (L), [place] (R), other Hematology/Immune: Denies: anemia, DVT, bleeding disorder, other Musculoskeletal/Integumentary: Denies: OA, RA, DJD, DDD, edema, other 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 Exam Physician Exam Last Vital Signs Date Time Temp Pulse Resp B/P (MAP) Pulse Ox O2 Delivery O2 Flow Rate FiO2 12/26/17 12:30 97.7 83 20 131/74 97 Room Air 97.7 Constitutional: NAD Neurologic: CN 2-12 intact Cardiovascular: RRR, no M/R/G Respiratory: CTA Gastrointestinal: S/NT/ND Airway Exam Mallampati Score: Class II MO: full ROM: full Teeth: intact Anesthesia Pre-op A/P Labs Hematology Test 12/26/17 03:55 White Blood Count 6.6 K/UL (4.8-10.8) # Red Blood Count 3.78 M/UL (4.20-5.40) L Hemoglobin 12.6 G/DL (12.0-16.0) Hematocrit 36.1 % (37.0-47.0) L Mean Corpuscular Volume 96 FL (80-99) Mean Corpuscular Hemoglobin 33.5 PG (27.0-31.0) H Mean Corpuscular Hemoglobin Concent 35.0 G/DL (32.0-36.0) Red Cell Distribution Width 11.6 % (11.6-14.8) Platelet Count 226 K/UL (150-450) Mean Platelet Volume 7.6 FL (6.5-10.1) Neutrophils (%) (Auto) % (45.0-75.0) Lymphocytes (%) (Auto) % (20.0-45.0) Monocytes (%) (Auto) % (1.0-10.0) Eosinophils (%) (Auto) % (0.0-3.0) Basophils (%) (Auto) % (0.0-2.0) Differential Total Cells Counted 100 Neutrophils % (Manual) 82 % (45-75) H Lymphocytes % (Manual) 17 % (20-45) L Monocytes % (Manual) 1 % (1-10) Eosinophils % (Manual) 0 % (0-3) Basophils % (Manual) 0 % (0-2) Band Neutrophils 0 % (0-8) Platelet Estimate Adequate Platelet Morphology Normal Red Blood Cell Morphology Normal Chemistry Test 12/26/17 03:55 Sodium Level 137 MMOL/L (136-145) Potassium Level 3.8 MMOL/L (3.5-5.1) Chloride Level 103 MMOL/L (98-107) Carbon Dioxide Level 25 MMOL/L (21-32) Anion Gap 9 mmol/L (5-15) Blood Urea Nitrogen 6 mg/dL (7-18) L Creatinine 0.8 MG/DL (0.55-1.30) Estimat Glomerular Filtration Rate > 60 mL/min (>60) Glucose Level 160 MG/DL (74-106) H Calcium Level 9.1 MG/DL (8.5-10.1) Total Bilirubin 0.7 MG/DL (0.2-1.0) Aspartate Amino Transf (AST/SGOT) 23 U/L (15-37) Alanine Aminotransferase (ALT/SGPT) 65 U/L (12-78) Alkaline Phosphatase 89 U/L (46-116) Total Protein 7.2 G/DL (6.4-8.2) Albumin 3.3 G/DL (3.4-5.0) L Globulin 3.9 g/dL Albumin/Globulin Ratio 0.8 (1.0-2.7) L Risk Assessment & Plan Assessment: Possible perforated bowel in a Ethan's patient Plan: GETA Status Change Before Surgery: No Pre-Antibiotics Drug: Patient received Zosyn upon entering the OR Given Within 1 Hr of Incision: Yes Time Given: 16:30 Jeff Jacinto MD Dec 26, 2017 17:35
--- NOTE | 2017-12-26 17:36 | Immediate Post-Op Evaluation ---
Immediate Post-Op Evalulation Immediate Post-Op Evalulation Procedure: Exploratory laparoscopy Date of Evaluation: Dec 26, 2017 Time of Evaluation: 18:05 IV Fluids: 1000 Estimated Blood Loss: 20 Blood Pressure Systolic: 99 Blood Pressure Diastolic: 49 Pulse Rate: 106 Respiratory Rate: 14 O2 Sat by Pulse Oximetry: 98 Temperature (Fahrenheit): 98.6 Pain Score (1-10): 0 Nausea: No Vomiting: No Complications No complication Patient Status: reacts, patent, extubated, none Hydration Status: adequate Drug: Zosyn Given Within 1 Hr of Incision: Yes Time Given: 16:30 Jeff Jacinto MD Dec 26, 2017 17:36
--- NOTE | 2017-12-26 18:02 | Brief Operative Note ---
Immediate Post Operative Note Operative Note Pre-op Diagnosis: pneumoperitoneum Procedure: diagnostic laparoscopy Post-op Diagnosis: same as pre-op Surgeon: brittany Anesthesiologist: cydney Anesthesia: general Specimen: none Complications: none Condition: stable Fluids: see records Estimated Blood Loss: minimal Drains: none Implant(s) used?: No Mathew Perez Dec 26, 2017 18:02
[2017-12-26] MEDS ORDERED: Norco 5mg/325mg tab ORAL PRN (18:15)
[2017-12-26] MEDS ORDERED: Milk of Magnesia 30ml Ud ORAL PRN (18:15)
--- NOTE | 2017-12-26 21:25 | Cardiology Report ---
APPROVED REPORT EKG Measurement Heart [id number] Normal sinus rhythm Minimal voltage criteria for LVH, may be normal variant Nonspecific T wave abnormality Prolonged QT Abnormal ECG
--- NOTE | 2017-12-26 22:37 | General Progress Note ---
Assessment/Plan Assessment/Plan Assessment - Crohn's disease, although extent and history not available - abd pain , ? etiology - small free air, ? source Recommendations - empiric Abx x 14 days - taper down steroids - Wean off of pain meds - diet per surgery - OOB Subjective Allergies: Coded Allergies: KETOROLAC (Verified Allergy, Unknown, 06/30/17) Subjective Above noted d/w PMD and surgery patient seen this am c/o abd apin taken for laparoscopy today --.unrevealing Objective Last 24 Hour Vital Signs Date Time Temp Pulse Resp B/P (MAP) Pulse Ox O2 Delivery O2 Flow Rate FiO2 12/26/17 20:55 97.6 90 18 107/73 98 97.6 12/26/17 18:45 98.0 98 16 111/68 100 Nasal Cannula 3.0 98.0 12/26/17 18:30 97 12 111/62 99 Nasal Cannula 3.0 12/26/17 18:15 100 14 109/56 100 Simple Mask 6.0 12/26/17 18:10 100 12 105/55 100 Simple Mask 6.0 12/26/17 18:05 103 13 107/54 100 Simple Mask 6.0 12/26/17 18:00 102 13 105/48 100 Simple Mask 6.0 12/26/17 18:00 209.5 106 14 98 12/26/17 17:55 98.6 103 11 99/49 100 Simple Mask 6.0 98.6 12/26/17 16:00 97.7 105 20 143/97 98 Room Air 97.7 12/26/17 16:00 100 12/26/17 12:30 97.7 83 20 131/74 97 Room Air 97.7 12/26/17 12:00 79 12/26/17 08:30 97.2 77 20 133/84 100 Room Air 97.2 12/26/17 07:35 68 12/26/17 04:00 86 12/26/17 04:00 97.9 75 20 136/75 98 Room Air 97.9 75 12/26/17 00:00 98.2 77 20 140/66 96 Room Air 98.2 77 12/26/17 00:00 88 Intake and Output 12/25/17 12/26/17 19:00 07:00 Intake Total 1762.5 ml 1772.0 ml Output Total 450 ml Balance 1312.5 ml 1772.0 ml IV Total 902.5 ml 1772.0 ml Other 860 ml Output Urine Total 450 ml # Voids 2 4 Laboratory Tests 12/26/17 03:55: White Blood Count 6.6#, Red Blood Count 3.78L, Hemoglobin 12.6, Hematocrit 36.1L , Mean Corpuscular Volume 96, Mean Corpuscular Hemoglobin 33.5H, Mean Corpuscular Hemoglobin Concent 35.0, Red Cell Distribution Width 11.6, Platelet Count 226, Mean Platelet Volume 7.6, Neutrophils (%) (Auto) , Lymphocytes (%) ( Auto) , Monocytes (%) (Auto) , Eosinophils (%) (Auto) , Basophils (%) (Auto) , Differential Total Cells Counted 100, Neutrophils % (Manual) 82H, Lymphocytes % (Manual) 17L, Monocytes % (Manual) 1, Eosinophils % (Manual) 0, Basophils % ( Manual) 0, Band Neutrophils 0, Platelet Estimate Adequate, Platelet Morphology Normal, Red Blood Cell Morphology Normal, Sodium Level 137, Potassium Level 3.8 , Chloride Level 103, Carbon Dioxide Level 25, Anion Gap 9, Blood Urea Nitrogen 6L, Creatinine 0.8, Estimat Glomerular Filtration Rate > 60, Glucose Level 160H , Calcium Level 9.1, Total Bilirubin 0.7, Aspartate Amino Transf (AST/SGOT) 23, Alanine Aminotransferase (ALT/SGPT) 65, Alkaline Phosphatase 89, Total Protein 7.2, Albumin 3.3L, Globulin 3.9, Albumin/Globulin Ratio 0.8L Height (Feet): 5 Height (Inches): 5.00 Weight (Pounds): 191 Objective Obese AA woman NCAT supple CTA RR Ald soft ND, Obese, (+) BM, (+) TTP diffusely , kev (R) LQ no edema BECKY PEMBERTON Dec 26, 2017 22:37
--- NOTE | 2017-12-26 23:15 | Operative Note - Dictated ---
DATE OF OPERATION: 12/26/2017 PREOPERATIVE DIAGNOSES: 1. Pneumoperitoneum. 2. Refractory abdominal pain. POSTOPERATIVE DIAGNOSES: 1. Pneumoperitoneum. 2. Refractory abdominal pain. OPERATION PERFORMED: Diagnostic laparoscopy. ATTENDING SURGEON: Mathew Perez M.D. ACCOUNTS RECEIVABLE ACCOUNTANT: None. ANESTHESIOLOGIST: Jeff Jacinto M.D. ANESTHESIA: General RECONSIGNMENT CLERK. ESTIMATED BLOOD LOSS: Minimal. IV FLUIDS: Please see anesthesia records. WOUND CLASSIFICATION: Class I. IV ANTIBIOTICS: The patient is on scheduled IV Zosyn prior to entering the operating room. COUNTS: Sponge and needle count correct x2. COMPLICATIONS: None. DRAINS: None. SPECIMENS: None. SIGNIFICANT OPERATIVE FINDINGS: 1. No significant intra-abdominal pathology identified. 2. Uterus with adhesions to the anterior abdominal wall. 3. No pus, abscess, areas of perforation or abnormalities identified. 4. Multiple pictures taken, in the patient's chart. INDICATIONS FOR PROCEDURE: This is a 47-year-old female, presents to the emergency department complaining of worsening acute onset abdominal pain, generalized with some focal tenderness in the right upper quadrant. The patient expressed nausea, vomiting, and possible constipation. The patient states that she has a history of severe Crohn's disease, which she has been on and off steroids for. Does not take them as scheduled all the time. The patient has been on high-dose steroids intermittently throughout the years for long-term Crohn's disease as well as Asacol and multiple prior medications, which she is currently not on. The patient states that approximately two months ago, in October, she was admitted to [facility] [place] for "stomach virus", which she was hospitalized for about two weeks and was put on multiple IV antibiotics. The patient states that she has been well since, but had this acute episode now. CT scan demonstrated small pockets of pneumoperitoneum, but no etiology could be identified. Initially, given the patient's history, conservative management with bowel rest and IV antibiotics were initiated. However, the patient continues to have pain. Repeat CT scan was done 48 to 72 hours later with oral contrast, which did not identify extravasation, but continued to identify pneumoperitoneum, but no free fluid, abscess or other abnormalities by which etiology could be identified. The patient persisted to have pain and given her history and above findings, diagnostic laparoscopy was warranted, indicated, and recommended. Risks, benefits, and alternatives of diagnostic laparoscopy, possible exploratory laparotomy, possible bowel resection, possible ostomy were discussed with the patient and the patient's son and fiance in detail prior to entering the operating room. I explained to him the possibilities of negative laparotomy, negative laparoscopy, possible exploration, possible bowel resection, possible ostomy, possible bleeding, infection, damage to the organs including potential fistula formation and exacerbation of her Crohn's disease. The patient consented to surgery, which was performed on 12/26/2017. OPERATIVE NOTE: The patient was taken to the operating room, placed on the operating table in supine position with bilateral arms out. All bony prominences were well padded. SCDs were placed. The patient just voided prior to entering the operating room, so Gonzalez catheter was not inserted. The patient was on scheduled IV Zosyn prior to entering the operating room. Preoperative time-out was taken identifying the patient, procedure, operative staff, and surgical staff. General anesthesia was induced and the patient was intubated. The abdomen was clipped, prepped, and draped in standard surgical fashion. The patient had a notable 1 cm umbilical defect, which was the proposed site for trocar insertion. An umbilical incision was made using a #11 scalpel, which was carried down to the fascia, which was identified and defect noted. A 12 mm Edil trocar was inserted through the defect without complication. Entry into the abdomen was noted on direct visualization. The abdomen was insufflated 12-15 mmHg without complication. The patient tolerated the insufflation well. Laparoscope was inserted and the abdomen was inspected. No initial abnormalities were identified. All 4 quadrants and pelvis were evaluated and no intra-abdominal pathology was noted. No abscess, fluid collections, or indications of injury or infection were noted. Secondary trocars were then placed under direct visualization, one in the left mid quadrant and one in the right mid quadrant, both being 5 mm with administration of local anesthetic in the proposed port sites. Laparoscopic bowel graspers were then inserted and the abdomen was inspected. The liver was evaluated on both aspects and the gallbladder was noted and no abnormalities were found. In the left upper quadrant, there were no abnormalities noted. In the right lower quadrant, no abnormalities were noted nor in the left lower quadrant or the pelvis. The uterus was identified with multiple adhesions to the abdominal wall given the patient's four prior C-sections. At this time, the area around the esophagus was identified at the estella and no abnormalities were noted. The stomach was identified, and otherwise, benign. The first portion of the duodenum and surrounding areas were otherwise normal as well. The gallbladder was filled with bile and had a normal bluish tint with the muscular cap at the dome. The transverse colon and omentum were identified and retracted cephalad and the ligament of Treitz was identified. The small bowel was run from the ligament of Treitz to the ileocecal valve, and no abnormalities were noted. The mesentery and small bowel were otherwise normal without inflammation and no significant signs of patient's history of Crohn's disease. The cecum was identified and no appendix was noted, which was consistent with the patient's history of open appendectomy many years ago. The ascending colon, hepatic flexure, transverse colon, splenic flexure, descending colon, and sigmoid colon were all evaluated and noted to be otherwise normal. No significant diverticular disease or areas of inflammation were identified. The sigmoid was followed down to the rectosigmoid junction and the pelvis was evaluated and no free fluid or other abnormalities were noted. The left ovary had multiple small potentially hemorrhagic or just fluid-filled cysts that were otherwise benign looking. The uterus was moderate sized and attached to the peritoneal lining from the patient's prior surgeries. The right ovary looked fairly normal. The right round ligament looked normal. At this time, no significant pathology was identified and negative laparoscopy was noted. Secondary trocars removed under direct visualization. The umbilical trocar was removed. The abdomen was allowed to desufflate. The 12 mm umbilical trocar site, which was a prior umbilical defect, was closed primarily using a #0 Vicryl [id number] suture. Skin incisions were all cleansed and skin incisions were reapproximated using 4-0 Monocryl interrupted sutures. Skin glue and Steri-Strips were applied. The patient tolerated the procedure well and was extubated taken to the postanesthetic care unit in stable condition. Operative findings were discussed with the patient and family. Mathew Perez M.D. DR: NAWAF JOB#: [id number] CC: [place]
[2017-12-26] MEDS: HYDROcodone/Acetamin 10/325 tab ORAL PRN (23:20)
[2017-12-27] VITALS: BP 109/69
[2017-12-27] MEDS: D5 1/2NS 1,000 ML IV SCH (03:18)
[2017-12-27] MEDS: Piperacillin/Tazobactam 3.375 GM in NS 110 ML IVPB SCH ×3 (03:34→20:52)
[2017-12-27 04:00] VITALS: BP 136/90
[2017-12-27] MEDS: HYDROcodone/Acetamin 10/325 tab ORAL PRN ×5 (04:07→20:45)
[2017-12-27] MEDS: DiphenhydrAMINE 50mg/ml Inj IVP PRN ×3 (05:06→22:49)
[2017-12-27 05:59] LABS: HEMATOCRIT 33.9 % (37.0-47.0); HEMOGLOBIN 12.1 G/DL (12.0-16.0); MEAN CORPUSCULAR VOLUME 96 FL (80-99); PLATELET COUNT 189 K/UL (150-450); RED BLOOD COUNT 3.53 M/UL (4.20-5.40); RED CELL DISTRIBUTION WIDTH 11.9 % (11.6-14.8); WHITE BLOOD COUNT 12.4 K/UL (4.8-10.8)
[2017-12-27] MEDS: Solu-MEDROL 40mg Inj IVP SCH ×2 (06:00→13:42)
[2017-12-27 06:32] LABS: ANION GAP 10 mmol/L (5-15); BLOOD UREA NITROGEN 5 mg/dL (7-18); CALCIUM 8.9 MG/DL (8.5-10.1); CARBON DIOXIDE 24 MMOL/L (21-32); CHLORIDE 105 MMOL/L (98-107); CREATININE 0.7 MG/DL (0.55-1.30); PHOSPHORUS 3.3 MG/DL (2.5-4.9); POTASSIUM 4.3 MMOL/L (3.5-5.1); SODIUM 138 MMOL/L (136-145)
[2017-12-27 08:00] VITALS: BP 126/91
[2017-12-27] MEDS: Pantoprazole Inj IVP SCH (08:21)
[2017-12-27] MEDS: Cyclobenzaprine 10mg Tab ORAL SCH (08:28)
[2017-12-27] MEDS: Heparin 5000 units/ml inj SUBQ SCH ×2 (08:38→20:53)
[2017-12-27] MEDS ORDERED: D5 1/2NS 1000ml IV ONE (08:56)
[2017-12-27] MEDS ORDERED: NS 275ml ONE (08:56)
[2017-12-27] MEDS ORDERED: Tubing IV Secondary IV ONE (08:56)
[2017-12-27] MEDS ORDERED: Docusate 100mg cap ORAL SCH (09:00)
--- NOTE | 2017-12-27 10:53 | 48 Hour Post Anesthesia Eval ---
Post Anesthesia Evaluation Procedure: Exploratory laparoscopy Date of Evaluation: Dec 27, 2017 Time of Evaluation: 11:30 Blood Pressure Systolic: 126 0: 91 Pulse Rate: 89 Respiratory Rate: 19 Temperature (Fahrenheit): 97.9 O2 Sat by Pulse Oximetry: 98 Airway: patent Nausea: No Vomiting: No Pain Intensity: 2 Hydration Status: adequate Cardiopulmonary Status: Stable Mental Status/LOC: patient returned to baseline Follow-up Care/Observations: As per surgery Post-Anesthesia Complications: No anesthetic complication Follow-up care needed: N/A Jeff Jacinto MD Dec 27, 2017 10:53
--- NOTE | 2017-12-27 11:58 | General Progress Note ---
Progress Note Progress Note Surgery: overnight was combative and confrontational with nursing staff. accused team of "talking bad" about her despite any actual/factual events. afebrile, HD stable, labs reviewed. abd soft, tenderness resolved and now only incisional discomfort, wounds c/d/i. good oral intake. awaiting return of bowel function discussed operative findings with patient. no pathology/etiology identified. was able to evaluate all 4 quadrants and pelvis. was able to run bowel from ligament to cecum without any abnormalities. no significant Crohn's disease noted on surgical evaluation. colon looks okay. uterus with adhesions. no perforation, infection, or other abnormality noted. -can consider re-evaluation of Crohn's disease -can consider weaning off meds -okay for diet. -okay to downgrade -possible d/c in 1-2 days once good bowel function. Mathew Perez Dec 27, 2017 11:58
[2017-12-27 12:00] VITALS: BP 151/91
--- NOTE | 2017-12-27 13:34 | General Progress Note ---
Assessment/Plan Problem List: (1) Pneumoperitoneum of unknown etiology ICD Codes: K66.8 - Other specified disorders of peritoneum SNOMED: 86793429 (2) Crohn disease ICD Codes: K50.90 - Crohn's disease, unspecified, without complications SNOMED: 71925456 (3) Abdominal pain ICD Codes: R10.9 - Unspecified abdominal pain SNOMED: 86309674 Assessment/Plan DC IVF Discussed with Dr Perez advance diet Subjective Allergies: Coded Allergies: KETOROLAC (Verified Allergy, Unknown, 06/30/17) Subjective pain is the same Objective Last 24 Hour Vital Signs Date Time Temp Pulse Resp B/P (MAP) Pulse Ox O2 Delivery O2 Flow Rate FiO2 12/27/17 10:53 208.2 89 19 98 12/27/17 08:00 97.9 89 19 126/91 98 Nasal Cannula 2.0 97.9 12/27/17 07:26 87 12/27/17 04:00 72 12/27/17 04:00 97.3 81 20 136/90 98 Nasal Cannula 2.0 97.3 12/27/17 00:00 97.9 87 18 109/69 98 Nasal Cannula 2.0 97.9 12/27/17 00:00 93 12/26/17 20:55 97.6 90 18 107/73 98 97.6 12/26/17 20:00 104 12/26/17 18:45 98.0 98 16 111/68 100 Nasal Cannula 3.0 98.0 12/26/17 18:30 97 12 111/62 99 Nasal Cannula 3.0 12/26/17 18:15 100 14 109/56 100 Simple Mask 6.0 12/26/17 18:10 100 12 105/55 100 Simple Mask 6.0 12/26/17 18:05 103 13 107/54 100 Simple Mask 6.0 12/26/17 18:00 102 13 105/48 100 Simple Mask 6.0 12/26/17 18:00 209.5 106 14 98 12/26/17 17:55 98.6 103 11 99/49 100 Simple Mask 6.0 98.6 12/26/17 16:00 97.7 105 20 143/97 98 Room Air 97.7 12/26/17 16:00 100 Intake and Output 12/26/17 12/27/17 19:00 07:00 Intake Total 2815.0 ml 2062.5 ml Output Total 2560 ml 1000 ml Balance 255.0 ml 1062.5 ml Intake Oral 100 ml 500 ml IV Total 2715.0 ml 1562.5 ml Output Urine Total 2550 ml 1000 ml Estimated Blood Loss 10 ml # Voids 2 Laboratory Tests 12/27/17 03:50: White Blood Count 12.4#H, Red Blood Count 3.53L, Hemoglobin 12.1, Hematocrit 33.9L, Mean Corpuscular Volume 96, Mean Corpuscular Hemoglobin 34.2H, Mean Corpuscular Hemoglobin Concent 35.6, Red Cell Distribution Width 11.9, Platelet Count 189, Mean Platelet Volume 7.3, Neutrophils (%) (Auto) , Lymphocytes (%) ( Auto) , Monocytes (%) (Auto) , Eosinophils (%) (Auto) , Basophils (%) (Auto) , Sodium Level 138, Potassium Level 4.3, Chloride Level 105, Carbon Dioxide Level 24, Anion Gap 10, Blood Urea Nitrogen 5L, Creatinine 0.7, Estimat Glomerular Filtration Rate > 60, Glucose Level 125H, Calcium Level 8.9, Phosphorus Level 3.3, Magnesium Level 2.0 Height (Feet): 5 Height (Inches): 5.00 Weight (Pounds): 191 Cardiovascular: normal rate Respiratory/Chest: lungs clear Abdomen: tender Edema: 2+ Generalized DAVID IVEY Dec 27, 2017 13:34
[2017-12-27] MEDS ORDERED: Milk of Magnesia 30ml Ud ORAL PRN (15:45)
[2017-12-27] MEDS ORDERED: Norco 5mg/325mg tab ORAL PRN (15:45)
[2017-12-27 16:00] VITALS: BP 147/90
[2017-12-27] MEDS: Docusate 100mg cap ORAL SCH (17:03)
[2017-12-27] MEDS ORDERED: Cyclobenzaprine 10mg Tab ORAL SCH (18:00)
--- NOTE | 2017-12-27 18:54 | General Progress Note ---
Assessment/Plan Assessment/Plan Assessment - Crohn's disease, although extent and history not available - abd pain , ? etiology - improving - small free air, ? source - clinically resolving Recommendations - empiric Abx x 14 days - taper down steroids - Wean off of pain meds - diet per surgery - OOB - f/u with prior GI team after discharge Subjective Allergies: Coded Allergies: KETOROLAC (Verified Allergy, Unknown, 06/30/17) Subjective Above noted on clears tolerating well abd pain better Objective Last 24 Hour Vital Signs Date Time Temp Pulse Resp B/P (MAP) Pulse Ox O2 Delivery O2 Flow Rate FiO2 12/27/17 16:00 98.4 92 20 147/90 97 Room Air 98.4 12/27/17 12:00 97.9 78 19 151/91 98 Nasal Cannula 2.0 97.9 12/27/17 10:53 208.2 89 19 98 12/27/17 08:00 97.9 89 19 126/91 98 Nasal Cannula 2.0 97.9 12/27/17 07:26 87 12/27/17 04:00 72 12/27/17 04:00 97.3 81 20 136/90 98 Nasal Cannula 2.0 97.3 12/27/17 00:00 97.9 87 18 109/69 98 Nasal Cannula 2.0 97.9 12/27/17 00:00 93 12/26/17 20:55 97.6 90 18 107/73 98 97.6 12/26/17 20:00 104 Intake and Output 12/26/17 12/27/17 19:00 07:00 Intake Total 2815.0 ml 2062.5 ml Output Total 2560 ml 1000 ml Balance 255.0 ml 1062.5 ml Intake Oral 100 ml 500 ml IV Total 2715.0 ml 1562.5 ml Output Urine Total 2550 ml 1000 ml Estimated Blood Loss 10 ml # Voids 2 Laboratory Tests 12/27/17 03:50: White Blood Count 12.4#H, Red Blood Count 3.53L, Hemoglobin 12.1, Hematocrit 33.9L, Mean Corpuscular Volume 96, Mean Corpuscular Hemoglobin 34.2H, Mean Corpuscular Hemoglobin Concent 35.6, Red Cell Distribution Width 11.9, Platelet Count 189, Mean Platelet Volume 7.3, Neutrophils (%) (Auto) , Lymphocytes (%) ( Auto) , Monocytes (%) (Auto) , Eosinophils (%) (Auto) , Basophils (%) (Auto) , Sodium Level 138, Potassium Level 4.3, Chloride Level 105, Carbon Dioxide Level 24, Anion Gap 10, Blood Urea Nitrogen 5L, Creatinine 0.7, Estimat Glomerular Filtration Rate > 60, Glucose Level 125H, Calcium Level 8.9, Phosphorus Level 3.3, Magnesium Level 2.0 Height (Feet): 5 Height (Inches): 5.00 Weight (Pounds): 191 Objective Obese AA woman NCAT supple CTA RR Ald soft ND, Obese, (+) BM, (+) TTP diffusely , kev (R) LQ no edema BECKY PEMBERTON Dec 27, 2017 18:54
[2017-12-27 19:30] VITALS: BP 148/85
[2017-12-27] MEDS ORDERED: Solu-MEDROL 40mg Inj IVP SCH (22:00)
[2017-12-28 00:11] VITALS: BP 126/80
[2017-12-28] MEDS: HYDROcodone/Acetamin 10/325 tab ORAL PRN ×4 (02:21→14:38)
[2017-12-28 04:19] VITALS: BP 153/106
[2017-12-28] MEDS: Piperacillin/Tazobactam 3.375 GM in NS 110 ML IVPB SCH ×2 (04:35→12:18)
[2017-12-28] MEDS: DiphenhydrAMINE 50mg/ml Inj IVP PRN ×2 (05:37→12:18)
[2017-12-28 06:55] LABS: ALANINE AMINOTRANSFERASE 194 U/L (12-78); ALBUMIN 3.4 G/DL (3.4-5.0); ALBUMIN/GLOBULIN RATIO 0.9 (1.0-2.7); ALKALINE PHOSPHATASE 84 U/L (46-116); ANION GAP 6 mmol/L (5-15); ASPARTATE AMINO TRANSFERASE 118 U/L (15-37); BILIRUBIN,TOTAL 0.4 MG/DL (0.2-1.0); BLOOD UREA NITROGEN 9 mg/dL (7-18); CALCIUM 8.9 MG/DL (8.5-10.1); CARBON DIOXIDE 32 MMOL/L (21-32); CHLORIDE 102 MMOL/L (98-107); CREATININE 0.9 MG/DL (0.55-1.30); POTASSIUM 3.5 MMOL/L (3.5-5.1); SODIUM 140 MMOL/L (136-145)
[2017-12-28 07:13] LABS: BASOPHILS % (AUTO) 0.6 % (0.0-2.0); HEMATOCRIT 37.1 % (37.0-47.0); HEMOGLOBIN 12.3 G/DL (12.0-16.0); LYMPHOCYTES % (AUTO) 21.6 % (20.0-45.0); MEAN CORPUSCULAR VOLUME 96 FL (80-99); MONOCYTES % (AUTO) 5.1 % (1.0-10.0); NEUTROPHILS % (AUTO) 72.7 % (45.0-75.0); PLATELET COUNT 193 K/UL (150-450); RED BLOOD COUNT 3.86 M/UL (4.20-5.40); RED CELL DISTRIBUTION WIDTH 11.5 % (11.6-14.8); WHITE BLOOD COUNT 9.1 K/UL (4.8-10.8)
[2017-12-28 08:00] VITALS: BP 149/92
[2017-12-28] MEDS: Docusate 100mg cap ORAL SCH (08:37)
[2017-12-28] MEDS: Heparin 5000 units/ml inj SUBQ SCH (08:42)
[2017-12-28 12:00] VITALS: BP 141/93
--- NOTE | 2017-12-28 14:59 | General Progress Note ---
Progress Note Progress Note Surgery: no acute events. comfortable. no n/v/f/c. afebrile, HD stable, labs reviewed. abd soft, tenderness resolved and now only incisional discomfort, wounds c/d/i. good oral intake. had BM's. discussed operative findings with patient. no pathology/etiology identified. was able to evaluate all 4 quadrants and pelvis. was able to run bowel from ligament to cecum without any abnormalities. no significant Crohn's disease noted on surgical evaluation. colon looks okay. uterus with adhesions. no perforation, infection, or other abnormality noted. -can consider re-evaluation of Crohn's disease -can consider weaning off meds -okay for diet. -d/c home tomorrow discharge planning Mathew Perez Dec 28, 2017 14:59
[2017-12-28 16:00] VITALS: BP 130/82
--- NOTE | 2017-12-28 16:27 | Discharge Instructions ---
Discharge Instructions Discharge Instructions Follow up with: Dr. Perez in 1-2 weeks. with PCP in 1-2 weeks. With GI in 1-2 weeks Diet: soft Resume Normal Activity?: Yes Activity: no restrictions For Surgical Patients Dressing Care: keep dry and clean May shower: Yes Contact your physician for: bleeding, pain, redness, swelling, yellowish discharge in the op. site For Congestive Heart Failure Reminder Report to your physician any weight gain of 5 pounds or more in one week. Mathew Perez Dec 28, 2017 16:27
[2017-12-28] MEDS ORDERED: NORCO 5-325 TA1 EAC1 ORAL (16:33)
[2017-12-28] MEDS ORDERED: OMEPRAZOLE20 M3 ORAL (16:33)
[2017-12-28] MEDS ORDERED: COLACE100 MG ORAL (16:33)
--- NOTE | 2017-12-29 14:52 | Discharge Summary ---
Discharge Summary Discharge Summary Discharge Summary DATE OF ADMISSION: 12/24/2017 DATE OF DISCHARGE: 12/28/2017 ATTENDING: Dr. Matthew Mas CONSULTANTS: Dr. Mathew Perez BRIEF HOSPITAL COURSE: Patient is a 47-year-old -[place] female with history of Crohn's disease , apparently diagnosed 5-6 years ago, came in with severe upper abdominal pain, 10 out of 10, started a day prior to admission. She is currently on Asacol and on tapering doses of prednisone. She was recently admitted to a hospital for treatment of Crohn's disease. Paramedics were called and she was taken to the hospital. On evaluation at ED, CAT scan of the abdomen showed pneumoperitoneum concerning for bowel perforation. She was admitted to [facility]. She was placed on npo and underwent surgical evaluation. Abdominal exam with epigastric and right upper quadrant tenderness but no rebound, no guarding, no peritonitis. There was no urgent need for surgery, she was observed conservatively. She was placed on IV hydration and pain management. A repeat CT scan was done 48-72 hours later with oral contrast, which did not identify extravasation, but continued to show pneumoperitoneum, but no free fluid, abscess or other abnormalities. She continued to have pain. She underwent diagnostic laparoscopy on 12/26/2017. Findings showed no pathology/ etiology identified. There was no significant Crohn's disease noted. Uterus with adhesions, no perforation, infection or any other abnormality noted. She was then started on diet and was weaned off pain medications. Diet was advanced. IV fluid was discontinued. Patient was doing well, tolerating diet with return of bowel function. She was eventually discharged home. FINAL DIAGNOSES: Pneumoperitoneum of unknown etiology Crohn's disease Abdominal pain DISPOSITION: Patient was discharged home DISCHARGE MEDICATIONS: Refer to Discharge Medication List. DISCHARGE INSTRUCTIONS: Follow up with PCP in a week. I have been assigned to dictate discharge summary on this account, and I was not involved in the patient's management. Britta Francisco NP Dec 29, 2017 14:52
== END 2017-12-28 17:53 | disposition home or self-care (01) | DRG 229 ==
LOC: EDBD 12:31 → EMR 13:20 → EDBEDREQ 16:49 → EDBEDREQSVC 17:18 → EDBEDREQ 17:18 → 2E 17:45 → EDBEDREQ 17:59 → 2W 20:01 → 4W 12-27 15:21
PROC: 0WJJ4ZZ Inspection of Pelvic Cavity, Percutaneous Endoscopic Approach (ICD-10-PCS; 2017-12-26)
PROC: 0WJP4ZZ Inspection of Gastrointestinal Tract, Percutaneous Endoscopic Approach (ICD-10-PCS; 2017-12-26)
PROC: 0WJG4ZZ Inspection of Peritoneal Cavity, Percutaneous Endoscopic Approach (ICD-10-PCS; principal; 2017-12-26 16:00)
DX: K66.8 Other specified disorders of peritoneum (principal); K50.90 Crohn's disease, unspecified, without complications; R10.9 Unspecified abdominal pain; N73.6 Female pelvic peritoneal adhesions (postinfective); Z88.8 Allergy status to other drugs, medicaments and biological substances
CPT/HCPCS: 36415; 71045; 74018; 74177; 80048; 80053; 80061; 80307; 81003; 81025; 82550; 82553; 82962; 83605; 83690; 83735; 84100; 84484; 85007; 85025; 85610; 85651; 85730; 86140; 86850; 86900; 86901; 93005; 99285; J2250; J2405; J2710

== ENCOUNTER 2019-11-05 03:05 | Emergency (ER) | payer MEDICAID, OTHER ==
[~2019-11-05] VITALS: Ht 162.6 cm; Wt 68.0 kg
[~2019-11-05 03:05] MED LIST: ASACOL HD800 MG ORAL; COLACE100 MG ORAL; CYCLOBENZAPRINE10 MG ORAL; NORCO 10-325 T1 EACH ORAL; NORCO 5-325 TA1 EAC1 ORAL; OMEPRAZOLE20 M3 ORAL; PREDNISONE20 MG ORAL
[2019-11-05 03:11] VITALS: BP 127/88
--- NOTE | 2019-11-05 03:12 | NUR ---
ED Nurse Note: Pt c/o 06/21 generalized body pain, starting at stomach and radiating to back, pt states she has been throwing up yesterday and today without relief from zofran taken at home. Pt also c/o burning with urination and discharge. VSS Pt is A&Ox4, placed on air sampling and monitoring
--- NOTE | 2019-11-05 03:27 | Emergency Room Report ---
History of Present Illness General Chief Complaint: Pain Source: Patient Present Illness HPI This is a 49-year-old female who says she has a history of Crohn's disease. She says she is taking Asacol and prednisone. Currently taking 30 mg a day. I will just increase to go. She presents with chief complaint abdominal pain. She has abdominal pain with nausea vomiting diarrhea for last 2 days. Also with fever. Pain is 10 out of 10. She said watery profuse diarrhea. Now she noticed some blood and skin tissue. Vomiting is nonbloody nonbilious. She get frequent exacerbation. Denies any trauma. Nothing made it better. Nothing made it worse. Denies any other complaint. Allergies: Coded Allergies: KETOROLAC (Verified Allergy, Unknown, 06/30/17) Patient History Past Medical History: see triage record, old chart reviewed Past Surgical History: other Pertinent Family History: none Social History: Denies: smoking Last Menstrual Period: unk Now: No Immunizations: other Reviewed Nursing Documentation: PMH: Agreed; PSxH: Agreed Nursing Documentation-PMH Past Medical History: No History, Except For Hx Cardiac Problems: No Hx Cancer: No Hx Gastrointestinal Problems: Yes Hx Neurological Problems: No Review of Systems Constitutional: Reports: fever Eye: Denies: eye pain, blurred vision ENT: Denies: ear pain, nose congestion, throat swelling Respiratory: Denies: cough, shortness of breath Cardiovascular: Denies: chest pain, palpitations Gastrointestinal: Reports: abdominal pain, diarrhea, nausea, vomiting Musculoskeletal: Denies: back pain, joint pain Skin: Denies: rash Neurological: Denies: headache, numbness Endocrine: Denies: increased thirst, increased urine Hematologic/Lymphatic: Denies: easy bruising All Other Systems: negative except mentioned in HPI Physical Exam Vital Signs Date Time Temp Pulse Resp B/P (MAP) Pulse Ox O2 Delivery O2 Flow Rate FiO2 11/05/19 03:07 99.1 94 20 127/88 (101) 99 Room Air Vitals unremarkable Sp02 EP Interpretation: reviewed, normal General Appearance: well appearing, no apparent distress, alert Head: normocephalic, atraumatic Eyes: bilateral eye PERRL, bilateral eye EOMI ENT: hearing grossly normal, normal pharynx Neck: full range of motion, supple, no meningismus Respiratory: chest non-tender, lungs clear, normal breath sounds Cardiovascular #1: regular rate, rhythm, no murmur Gastrointestinal: normal bowel sounds, no mass, no organomegaly, no bruit, non- distended, tenderness - Diffuse but soft Rectal: other - No stool. Heme-negative. No blood Musculoskeletal: back normal, normal range of motion, gait/station normal Neurologic: alert, oriented x3 Psychiatric: mood/affect normal Medical Decision Making Diagnostic Impression: Primary Impression: Abdominal pain Qualified Codes: R10.84 - Generalized abdominal pain Additional Impression: Community acquired pneumonia Qualified Codes: J18.9 - Pneumonia, unspecified organism ER Course Patient presents with abdominal pain with nausea vomiting diarrhea. She is is no vomiting here or any diarrhea here. She appeared to be very nervous. She started complaint of multiple other complaints. She said that her heartbeat is beating fast. She was concerned about her chest. She has no coughing or congestion oxygenation is completely normal at 100%. She was concerned about her diarrhea and seeing tissues. I find no finding on the rectal exam. I put her on antibiotics to cover for possible community-acquired pneumonia even though she has no symptoms. This may explain her low-grade fever. This may be a viral etiology. Labs unremarkable. Will discharge home. CT/MRI/US Diagnostic Results CT/MRI/US Diagnostic Results : Imaging Test Ordered: CT abdomen pelvis Impression Read by radiologist. Lower lobe groundglass air space opacities. Abdominal findings negative. Last Vital Signs Date Time Temp Pulse Resp B/P (MAP) Pulse Ox O2 Delivery O2 Flow Rate FiO2 11/05/19 03:11 99.1 20 127/88 99 Room Air 11/05/19 03:07 94 Status: improved Disposition: HOME, SELF-CARE Condition: Stable Scripts Acetaminophen* (ACETAMINOPHEN EXTRA STRENGTH*) 500 Mg Tablet 500 MG ORAL Q8H PRN for Fever/Headache/Mild Pain, #30 TAB Prov: Kwaku Jhaveri MD 11/05/19 Azithromycin* (ZITHROMAX*) 250 Mg Tablet 250 MG ORAL DAILY, #6 TAB 0 Refills Take two tables once daily for 1 day, then one tablet once daily for 4 days. Prov: Kwaku Jhaveri MD 11/05/19 Amoxicillin* (AMOXIL*) 500 Mg Capsule 1000 MG ORAL THREE TIMES A DAY, #42 CAP Prov: Kwaku Jhaveri MD 11/05/19 Referrals: [facility],REFERRING (PCP) Additional Instructions: Follow-up with your doctor in 3 to 5 days for recheck. Increase fluids. Return if symptoms worsen. Kwaku Jhaveri MD Nov 05, 2019 03:27
[2019-11-05] MEDS ORDERED: HYDROmorphone 1mg/ml Carpuject IVP ONE (03:30)
--- NOTE | 2019-11-05 03:35 | NUR ---
ED Nurse Note: pt to CT
--- NOTE | 2019-11-05 04:03 | Diagnostic Imaging Report ---
Indication: Abdominal pain for 3 days Technique: Spiral acquisitions obtained through the abdomen and pelvis. No oral contrast utilized, per emergency room physician request No IV contrast utilized, per referring physician request.. Multiplanar reconstructions were generated. Total dose length product 287 mGycm. CTDIvol(s) 5 mGy. Dose reduction achieved using automated exposure control Comparison: 12/26/2017 Findings: Appendix is not definitely identified, but no findings to suggest acute appendicitis are evident. No evidence of colonic diverticulosis or diverticulitis. No small bowel distention. No free or loculated intraperitoneal gas or fluid is evident. Previously demonstrated free intraperitoneal gas is no longer evident. Previously demonstrated fat-containing umbilical hernia is much less evident currently. Lack of IV contrast limits assessment of the solid organs. The liver appears mildly enlarged. No gross focal abnormality. Gallbladder, bile ducts, pancreas, spleen, adrenals, kidneys are unremarkable. No retroperitoneal or mesenteric mass or adenopathy. No pelvic mass or adenopathy. Uterus and ovaries appear unremarkable. The included lung bases demonstrate some patchy opacities in the right middle lobe and superior segment of the left lower lobe. The bones demonstrate degenerative spondylosis changes. Impression: Limited exam as described Opacities in the right middle lobe and superior segment left lower lobe, could indicate patchy pneumonia No acute abdominal process Borderline hepatomegaly This agrees with the preliminary interpretation provided overnight by [facility] teleradiology service. The CT scanner at [facility] is accredited by the [employer] and the scans are performed using protocols designed to limit radiation exposure to as low as reasonably achievable to attain images of sufficient resolution adequate for diagnostic evaluation.
--- NOTE | 2019-11-05 04:05 | NUR ---
ED Nurse Note: Pt back from CT
[2019-11-05 04:11] LABS: BASOPHILS % (AUTO) 0.9 % (0.0-2.0); EOSINOPHILS % (AUTO) 0.4 % (0.0-3.0); HEMATOCRIT 35.3 % (37.0-47.0); HEMOGLOBIN 12.4 G/DL (12.0-16.0); MEAN CORPUSCULAR VOLUME 94 FL (80-99); MONOCYTES % (AUTO) 3.6 % (1.0-10.0); NEUTROPHILS % (AUTO) 82.1 % (45.0-75.0); PLATELET COUNT 132 K/UL (150-450); RED BLOOD COUNT 3.73 M/UL (4.20-5.40); RED CELL DISTRIBUTION WIDTH 11.6 % (11.6-14.8); WHITE BLOOD COUNT 11.1 K/UL (4.8-10.8)
[2019-11-05 04:25] LABS: ANION GAP 12 mmol/L (5-15); BLOOD UREA NITROGEN 11 mg/dL (7-18); CALCIUM 8.9 MG/DL (8.5-10.1); CARBON DIOXIDE 24 MMOL/L (21-32); CHLORIDE 105 MMOL/L (98-107); CREATININE 0.9 MG/DL (0.55-1.30); POTASSIUM 3.9 MMOL/L (3.5-5.1); SODIUM 141 MMOL/L (136-145)
[2019-11-05 04:30] LABS: ALANINE AMINOTRANSFERASE 25 U/L (12-78); ALBUMIN 3.8 G/DL (3.4-5.0); ALBUMIN/GLOBULIN RATIO 1.1 (1.0-2.7); ALKALINE PHOSPHATASE 101 U/L (46-116); ASPARTATE AMINO TRANSFERASE 27 U/L (15-37); BILIRUBIN,TOTAL 0.9 MG/DL (0.2-1.0)
[2019-11-05] MEDS ORDERED: Azithromycin 250mg tab ORAL ONE (04:45)
[2019-11-05] MEDS ORDERED: cefTRIAXone 1 GM in NS 55 ML IVPB ONE (04:45)
[2019-11-05] MEDS ORDERED: AMOXICILLIN500 MG ORAL (04:53)
[2019-11-05] MEDS ORDERED: ZITHROMAX250 MG ORAL (04:53)
[2019-11-05] MEDS ORDERED: ACETAMINOPHEN500 M3 ORAL (04:53)
[2019-11-05 05:02] LABS: APPEARANCE,URINE CLEAR; BILIRUBIN, URINE NEGATIVE (NEGATIVE); COLOR,URINE PALE YELLOW; GLUCOSE, URINE (UA) NEGATIVE (NEGATIVE); KETONES,URINE NEGATIVE (NEGATIVE); LEUKOCYTE ESTERASE ,URINE NEGATIVE (NEGATIVE); NITRITE,URINE NEGATIVE (NEGATIVE); PH,URINE 7 (4.5-8.0); PROTEIN,URINE NEGATIVE (NEGATIVE); UROBILINOGEN,URINE NORMAL MG/DL (0.0-1.0)
[2019-11-05 05:50] VITALS: BP 127/88
--- NOTE | 2019-11-05 05:50 | NUR ---
ER DISCHARGE NOTE: Patient is cleared to be discharged per ERMD, pt is aox4, on room air, with stable vital signs. pt was given dc and prescription instructions, pt was able to verbalize understanding, pt id band and iv site removed without complications. pt is able to ambulate with steady gait. pt took all belongings.
== END 2019-11-05 05:50 | disposition home or self-care (01) ==
LOC: EDBD 03:05 → EDUNIT# 03:05 → EMR 03:20
DX: R10.84 Generalized abdominal pain (principal); J18.9 Pneumonia, unspecified organism; Z88.8 Allergy status to other drugs, medicaments and biological substances; R50.9 Fever, unspecified
CPT/HCPCS: 36415; 74176; 80053; 80307; 81003; 83690; 85025; 86710; 96361; 96365; 96375; J0696; J1170; J2405; J7030; Q0144; Z7502; 99284